=== PATIENT | female | born 1990 | race Caucasian/White ===

== ENCOUNTER → 2018-02-16 | Outpatient (CLI) | payer OTHER ==
--- NOTE | 2018-02-16 11:22 | US ---
EXAMINATION TYPE: US thyroid st tissue head/neck DATE OF EXAM: 02/16/2018 COMPARISON: NONE CLINICAL HISTORY: 27-year-old female R22.0 Swelling abnormality neck. No thyroid meds. Patient state s doctor felt thyroid was enlarged. Tired. Sluggish. Weight gain- 40 lbs in 1 year. TECHNIQUE: Multiple sonographic images of the thyroid gland are obtained. FINDINGS: GLAND SIZE: Right Lobe: 4.5 x 1.5 x 1.5 cm Overall Parenchyma: homogenous Left Lobe: 4.2 x 1.2 x 1.3 cm Overall Parenchyma: homogeneous Isthmus Thickness: 0.2 cm NODULES RIGHT: # of nodules measured on right: 2 1. 0.9 X 0.7 x 0.5 cm hypoechoic solid nodule at the lateral mid pole with well-defined margins. T his nodule is wider than tall and shows intranodular vascularity. Prior size: No previous 2. 0.5 X 0.5 x 0.4 cm hypoechoic solid nodule at the lower medial pole with well-defined margins. T his nodule is wider than tall and shows intranodular vascularity. Prior size: No prior LEFT: # of nodules measured on left: 0 ISTHMUS: # of nodules measured in the isthmus: 0 Bilateral neck scanned. Left prominent lymph node seen in lateral neck- 1.5 x 0.9 x 0.5 cm IMPRESSION: 1. Two solid nodules in the right lobe measuring 9 mm and 5 mm. Follow-up can be performed for these. 2. A prominent but nonenlarged lymph node incidentally seen along the lateral aspect of the left neck (9 mm short axis) and is nonspecific.
== END | disposition home or self-care (01) ==
LOC: RADUSWWP 10:21
PROVIDERS: ATTEND Internal Medicine
DX: E04.2 Nontoxic multinodular goiter (principal)
CPT/HCPCS: 76536

== ENCOUNTER 2018-06-22 03:51 | Emergency (ER) | payer OTHER ==
[2018-06-22 03:59] VITALS: BP 132/98; PULSE 81; RESP 18; TEMP 97.7
--- NOTE | 2018-06-22 04:34 | ED ---
ENT HPI - General Chief complaint: ENT Stated complaint: Difficulty Breathing Time Seen by Provider: 06/22/18 04:33 Source: patient Mode of arrival: ambulatory Limitations: physical limitation - History of Present Illness Initial comments: Patient is a 27-year-old female presents the emergency department for 2 days of sore throat. Patient reports that he just feels like her throat is swollen and on fire. It hurts to eat or drink. She reports associated subjective fevers. She denies any associated chills, nausea, vomiting, chest pain or shortness of breath. She reports even breathing hurts. Patient denies any sick contacts that she does have 3 children 10 years and younger home. - Related Data Previous Rx's Medication Instructions Recorded Amoxicillin 500 mg PO BID 10 Days #20 capsule 06/22/18 Allergies Allergy/AdvReac Type Severity Reaction Status Date / Time No Known Allergies Allergy Verified 06/22/18 03:59 Review of Systems ROS Statement: Those systems with pertinent positive or pertinent negative responses have been documented in the HPI. ROS Other: All systems not noted in ROS Statement are negative. Past Medical History Past Medical History: No Reported History History of Any Multi-Drug Resistant Organisms: None Reported Past Surgical History: No Surgical Hx Reported Additional Past Surgical History / Comment(s): tubal ligation Past Psychological History: No Psychological Hx Reported Smoking Status: Former smoker Past Alcohol Use History: None Reported Past Drug Use History: None Reported General Exam - General Exam Comments Initial Comments: Physical Exam GENERAL: Patient is well-developed and well-nourished. Patient is nontoxic and well-hydrated, appears uncomfortable HENT: Normocephalic, Atraumatic. TMs normal bilaterally Posterior oropharynx with erythema and exudate of the bilateral tonsils, there is no asymmetry, uvula is midline, there is no evidence of peritonsillar abscess Tender cervical lymphadenopathy EYES: PERRL, EOMI PULMONARY: Unlabored respirations. No audible rales rhonchi or wheezing was noted. CARDIOVASCULAR: There is a regular rate and rhythm without any murmurs gallops or rubs. ABDOMEN: Soft and nontender with normal bowel sounds. SKIN: Skin is clear with no lesions or rashes and otherwise unremarkable. : Deferred NEUROLOGIC: Patient is alert and oriented x3. Moving all extremities spontaneously MUSCULOSKELETAL: Normal extremities with adequate strength and full range of motion. No lower extremity swelling or edema. No calf tenderness. PSYCHIATRIC: Normal psychiatric evaluation. Limitations: physical limitation Course Vital Signs 06/22/18 03:55 Temperature 97.7 F Pulse Rate 81 Respiratory 18 Rate Blood Pressure 132/98 O2 Sat by Pulse 97 Oximetry Medical Decision Making - Medical Decision Making Patient was seen and evaluated history was obtained from the patient Discussed in history and physical exam patient likely has strep will treat with steroids for inflammation and antibiotics for strep Advised patient to have her children evaluated if they develop symptoms All questions pertaining to care were answered, patient discharged home in stable condition. Disposition Clinical Impression: Streptococcal sore throat Disposition: HOME SELF-CARE Condition: Stable Instructions (If sedation given, give patient instructions): Strep Throat (DC) Prescriptions: Amoxicillin 500 mg PO BID 10 Days #20 capsule Is patient prescribed a controlled substance at d/c from ED?: No Referrals: Stephanie Barry MD [Primary Care Provider] - 1-2 days
[2018-06-22] MEDS ORDERED: AMOXICILLIN 500 MG CAP PO STA (04:38)
[2018-06-22] MEDS ORDERED: DEXAMETHASONE SOD PHOSPHATE 10 MG/ML 1 ML VIAL IM STA (04:38)
== END 2018-06-22 04:47 | disposition home or self-care (01) ==
LOC: EC 03:51
DX: J02.0 Streptococcal pharyngitis (principal); Z87.891 Personal history of nicotine dependence
CPT/HCPCS: 96372; 99284

== ENCOUNTER 2018-07-05 22:30 | Emergency (ER) | payer OTHER ==
[2018-07-05 23:04] VITALS: BP 142/95; PULSE 98; RESP 20; TEMP 98.6
[2018-07-05 23:09] LABS: Appearance,Urine Turbid (Clear); Bilirubin,Urine Negative (Negative); Blood,Urine Moderate (Negative); Color,Urine Light Red; Glucose,Urine (UA) Negative (Negative); Ketones,Urine Negative (Negative); Leukocyte Esterase,Urine Large (Negative); Mucus,Urine Rare /hpf; Nitrite,Urine Negative (Negative); Protein,Urine 2+ (Negative); RBC,Urine >182 /hpf (0-5); Specific Gravity,Urine 1.025 (1.001-1.035); Squamous Epithelial Cell,Urine 4 /hpf (0-4); Urobilinogen,Urine <2.0 mg/dL (<2.0)
[2018-07-06] MEDS ORDERED: NALOXONE 0.4 MG/ML 1 ML VIAL IV PRN (00:41)
[2018-07-06] MEDS ORDERED: NITROFURANTOIN MONOHYD/M-CRYST 100 MG CAP PO STA (00:57)
--- NOTE | 2018-07-06 00:57 | ED ---
General Adult HPI <Lucila Amezcua - Last Filed: 07/06/18 03:26> - General Source: patient Mode of arrival: ambulatory Limitations: no limitations <Ana Johnson - Last Filed: 07/06/18 03:33> - General Chief complaint: Abdominal Pain Stated complaint: Abd pain, blood in urine Time Seen by Provider: 07/06/18 00:57 - History of Present Illness Initial comments: 27-year-old female presented for dysuria frequency and hematuria. Patient states that yesterday she experienced some mild left lower back pain. She states today she has had dysuria urgency frequency that began later this evening. Patient states he came on suddenly comes and goes. She states that yesterday she took Tylenol this alleviate the back pain she has not had any sense. Patient denies any fever or chills or night sweats. Patient states she has had a tubal ligation is not . Patient denies nausea vomiting diarr hea. Patient denies any pelvic pain or cramping. Remaining review of systems negative upon arrival patient appears well no signs of acute distress. Patient states that she recently had STI testing, at the beginning of June, pt states they returned negative and she has zero concern for STI. (Lucila Amezcua) - Related Data Previous Rx's Medication Instructions Recorded Sulfamethox-Tmp 800-160Mg [Bactrim 1 tab PO Q12HR 28 Days #14 tab 07/06/18 DS 800-160 mg] Allergies Allergy/AdvReac Type Severity Reaction Status Date / Time No Known Allergies Allergy Verified 06/22/18 03:59 Review of Systems ROS Other: All systems not noted in ROS Statement are negative. <Lucila Amezcua - Last Filed: 07/06/18 03:26> ROS Other: All systems not noted in ROS Statement are negative. <Ana Johnson - Last Filed: 07/06/18 03:33> ROS Statement: Those systems with pertinent positive or pertinent negative responses have been documented in the HPI. Past Medical History Past Medical History: No Reported History History of Any Multi-Drug Resistant Organisms: None Reported Past Surgical History: No Surgical Hx Reported Additional Past Surgical History / Comment(s): tubal ligation Past Psychological History: No Psychological Hx Reported Smoking Status: Former smoker Past Alcohol Use History: Rare Past Drug Use History: None Reported <Ana Johnson - Last Filed: 07/06/18 03:33> General Exam <Lucila Amezcua - Last Filed: 07/06/18 03:26> Limitations: no limitations <Ana Johnson - Last Filed: 07/06/18 03:33> - General Exam Comments Initial Comments: General: The patient is awake and alert, in no distress, and does not appear acutely ill. Eye: Pupils are equal, round and reactive to light, extra-ocular movements are intact. No nystagmus. There is normal conjunctiva bilaterally. No signs of icterus. Ears, nose, mouth and throat: There are moist mucous membranes and no oral lesions. Neck: The neck is supple, there is no tenderness or JVD. Cardiovascular: There is a regular rate and rhythm. No murmur, rub or gallop is appreciated. Respiratory: Lungs are clear to auscultation, respirations are non-labored, breath sounds are equal. No wheezes, stridor, rales, or rhonchi. Gastrointestinal: Soft, non-distended, non-tender abdomen without masses or organomegaly noted. There is no rebound or guarding present. No CVA tenderness. Bowel sounds are unremarkable. Musculoskeletal: Normal ROM, no tenderness. Strength 5/5. Sensation intact. Pulses equal bilaterally 2+. Neurological: A&O x 3. CN II-XII intact, There are no obvious motor or sensory deficits. Coordination appears grossly intact. Speech is normal. Skin: Skin is warm and dry and no rashes or lesions are noted. Psychiatric: Cooperative, appropriate mood & affect, normal judgment. (Lucila Amezcua) Course Vital Signs 07/05/18 23:02 Temperature 98.6 F Pulse Rate 98 Respiratory 20 Rate Blood Pressure 142/95 O2 Sat by Pulse 99 Oximetry Medical Decision Making - Lab Data Result diagrams: 07/06/18 01:20 07/06/18 01:20 <Lucila Amezcua - Last Filed: 07/06/18 03:26> - Lab Data Result diagrams: 07/06/18 01:20 07/06/18 01:20 <Ana Johnson - Last Filed: 07/06/18 03:33> - Medical Decision Making 27-year-old female presenting for dysuria urgency frequency and history of back pain yesterday. Pt denies fever, no CVA tenderness. Urinalysis revealed findings consistent with possible stone versus urinary tract infection, hemorrhagic. Patient is given a dose of macrobid in the emergency department. CT revealed no signs of nephrolithiasis. However there was incidental finding of epiploic appendagitis, however patient is nontender to palpation of the left lower heri drant on examination. I discussed this finding with patient. At this time I feel patient is stable for discharge with outpatient follow-up, treatment with bactrim x 14 days. Concern for developing pyelonephritis from UTI. Return parameters were discussed with patient who verbalizes understanding. Patient was discharged appearing well, after discussing case with attending provider Dr. Johnson. (Lucila Amezcua) I was available for consultation in the emergency department. The history and physical exam were done by the midlevel provider. I was consulted for this patient's care. I reviewed the case with the midlevel provider and based on their presentation of the patient, I agree with the assessment, medical decision making and plan of care as documented. Chart was dictated using Whatever dictation software. Attempts were made to correct any dictation errors however some typographical errors may persist. (Ana Johnson) - Lab Data Lab Results 07/05/18 07/05/18 07/06/18 Range/Units 22:45 22:45 01:20 WBC 14.1 H (3.8-10.6) k/uL RBC 4.63 (3.80-5.40) m/uL Hgb 13.2 (11.4-16.0) gm/dL Hct 38.9 (34.0-46.0) % MCV 83.9 (80.0-100.0) fL MCH 28.5 (25.0-35.0) pg MCHC 33.9 (31.0-37.0) g/dL RDW 13.7 (11.5-15.5) % Plt Count 191 (150-450) k/uL Neutrophils % 79 % Lymphocytes % 16 % Monocytes % 4 % Eosinophils % 1 % Basophils % 0 % Neutrophils # 11.1 H (1.3-7.7) k/uL Lymphocytes # 2.2 (1.0-4.8) k/uL Monocytes # 0.5 (0-1.0) k/uL Eosinophils # 0.1 (0-0.7) k/uL Basophils # 0.0 (0-0.2) k/uL Sodium (137-145) mmol/L Potassium (3.5-5.1) mmol/L Chloride (98-107) mmol/L Carbon Dioxide (22-30) mmol/L Anion Gap mmol/L BUN (7-17) mg/dL Creatinine (0.52-1.04) mg/dL Est GFR (CKD-EPI)AfAm (>60 ml/min/1.73 sqM) Est GFR (CKD-EPI)NonAf (>60 ml/min/1.73 sqM) Glucose (74-99) mg/dL Calcium (8.4-10.2) mg/dL Total Bilirubin (0.2-1.3) mg/dL AST (14-36) U/L ALT (9-52) U/L Alkaline Phosphatase (38-126) U/L Total Protein (6.3-8.2) g/dL Albumin (3.5-5.0) g/dL Urine Color Light Red Urine Appearance Turbid H (Clear) Urine pH 6.0 (5.0-8.0) Ur Specific [place] 1.025 (1.001-1.035) Urine Protein 2+ H (Negative) Urine Glucose (UA) Negative (Negative) Urine Ketones Negative (Negative) Urine Blood Moderate H (Negative) Urine Nitrite Negative (Negative) Urine Bilirubin Negative (Negative) Urine Urobilinogen <2.0 (<2.0) mg/dL Ur Leukocyte Esterase Large H (Negative) Urine RBC >182 H (0-5) /hpf Urine WBC >182 H (0-5) /hpf Urine WBC Clumps Occasional H (None) /hpf Ur Squamous Epith Cells 4 (0-4) /hpf Urine Mucus Rare H (None) /hpf Urine HCG, Qual Not Detected (Not Detectd) 07/06/18 Range/Units 01:20 WBC (3.8-10.6) k/uL RBC (3.80-5.40) m/uL Hgb (11.4-16.0) gm/dL Hct (34.0-46.0) % MCV (80.0-100.0) fL MCH (25.0-35.0) pg MCHC (31.0-37.0) g/dL RDW (11.5-15.5) % Plt Count (150-450) k/uL Neutrophils % % Lymphocytes % % Monocytes % % Eosinophils % % Basophils % % Neutrophils # (1.3-7.7) k/uL Lymphocytes # (1.0-4.8) k/uL Monocytes # (0-1.0) k/uL Eosinophils # (0-0.7) k/uL Basophils # (0-0.2) k/uL Sodium 140 (137-145) mmol/L Potassium 3.8 (3.5-5.1) mmol/L Chloride 106 (98-107) mmol/L Carbon Dioxide 27 (22-30) mmol/L Anion Gap 7 mmol/L BUN 14 (7-17) mg/dL Creatinine 0.75 (0.52-1.04) mg/dL Est GFR (CKD-EPI)AfAm >90 (>60 ml/min/1.73 sqM) Est GFR (CKD-EPI)NonAf >90 (>60 ml/min/1.73 sqM) Glucose 91 (74-99) mg/dL Calcium 9.6 (8.4-10.2) mg/dL Total Bilirubin 0.4 (0.2-1.3) mg/dL AST 17 (14-36) U/L ALT 21 (9-52) U/L Alkaline Phosphatase 62 (38-126) U/L Total Protein 7.3 (6.3-8.2) g/dL Albumin 4.3 (3.5-5.0) g/dL Urine Color Urine Appearance (Clear) Urine pH (5.0-8.0) Ur Specific [place] (1.001-1.035) Urine Protein (Negative) Urine Glucose (UA) (Negative) Urine Ketones (Negative) Urine Blood (Negative) Urine Nitrite (Negative) Urine Bilirubin (Negative) Urine Urobilinogen (<2.0) mg/dL Ur Leukocyte Esterase (Negative) Urine RBC (0-5) /hpf Urine WBC (0-5) /hpf Urine WBC Clumps (None) /hpf Ur Squamous Epith Cells (0-4) /hpf Urine Mucus (None) /hpf Urine HCG, Qual (Not Detectd) Disposition Is patient prescribed a controlled substance at d/c from ED?: No Time of Disposition: 02:39 <Lucila Amezcua L - Last Filed: 07/06/18 03:26> <Ana Johnson - Last Filed: 07/06/18 03:33> Clinical Impression: UTI (urinary tract infection), Epiploic appendagitis Disposition: HOME SELF-CARE Condition: Good Instructions (If sedation given, give patient instructions): Urinary Tract Infection in Women (ED) Additional Instructions: Please use medication as discussed. Please follow-up with family doctor in the next 2 days.. Please return to emergency room if the symptoms increase or worsen or for any other concerns. Prescriptions: Sulfamethox-Tmp 800-160Mg [Bactrim DS 800-160 mg] 1 tab PO Q12HR 28 Days #14 tab Referrals: Stephanie Barry MD [Primary Care Provider] - 1-2 days
[2018-07-06] MEDS ORDERED: KETOROLAC 60 MG/2 ML VIAL IM STA (00:59)
--- NOTE | 2018-07-06 01:32 | XR ---
EXAM: XR Kub CLINICAL HISTORY: ITS.REASON XR Reason: calcifications TECHNIQUE: X-ray kub. COMPARISON: 04/27/10 FINDINGS/IMPRESSION: 2 upright views of the abdomen/pelvis. Bowel gas pattern nonobstructive. No subdiaphragmatic free air. Tubal ligation clips. Possible increased fecal burden. Correlate for constipation. No abnormal calcifications can be differentiated from possible vascular calcifications/intraluminal bowel contents. If there is concern for cholelithiasis or urolithiasis, ultrasound and/or CT could be obtained, as clinically indicated.
[2018-07-06 01:40] LABS: ALT 21 U/L (9-52); AST 17 U/L (14-36); Albumin 4.3 g/dL (3.5-5.0); Alkaline Phosphatase 62 U/L (38-126); Anion Gap 7 mmol/L; Blood Urea Nitrogen 14 mg/dL (7-17); Calcium 9.6 mg/dL (8.4-10.2); Carbon Dioxide 27 mmol/L (22-30); Chloride 106 mmol/L (98-107); Glucose 91 mg/dL (74-99); Potassium 3.8 mmol/L (3.5-5.1); Sodium 140 mmol/L (137-145); Total Bilirubin 0.4 mg/dL (0.2-1.3); Total Protein 7.3 g/dL (6.3-8.2)
[2018-07-06 01:46] LABS: Basophils % (A) 0 %; Eosinophils # (A) 0.1 k/uL (0-0.7); Eosinophils % (A) 1 %; HCT 38.9 % (34.0-46.0); HGB 13.2 gm/dL (11.4-16.0); Lymphocytes # (A) 2.2 k/uL (1.0-4.8); Lymphocytes % (A) 16 %; MCH 28.5 pg (25.0-35.0); MCHC 33.9 g/dL (31.0-37.0); MCV 83.9 fL (80.0-100.0); Mean Platelet Volume 7.7; Monocytes # (A) 0.5 k/uL (0-1.0); Monocytes % (A) 4 %; Neutrophils # (A) 11.1 k/uL (1.3-7.7); Neutrophils % (A) 79 %; Platelet Count 191 k/uL (150-450); RBC 4.63 m/uL (3.80-5.40); RDW 13.7 % (11.5-15.5); WBC 14.1 k/uL (3.8-10.6)
--- NOTE | 2018-07-06 02:36 | CT ---
ADDENDUM - Added by Alonso Murillo M.D. on 07/06/2018 2:38 AM (-07:00) Axial computed tomography images of the abdomen + pelvis without intravenous contrast. Please disregard CTDI in technique portion of report which was incorrectly entered. DLP is 525.5 mGy-cm. EXAM: CT Abdomen + Pelvis Without Intravenous Contrast CLINICAL HISTORY: ITS.REASON CT Reason: stone? TECHNIQUE: Axial computed tomography images of the abdomen + pelvis without intravenous contrast. CTDI is 5 mGy and DLP is 525.5 mGy-cm. This CT exam was performed using one or more of the following dose reduction techniques: automated exposure control, adjustment of the mA and/or kV according to patient size, and/or use of iterative reconstruction technique. COMPARISON: Plain film same date. CT examination from April 23, 2010 FINDINGS: Focal fat stranding in the left lower quadrant compatible with epiploic appendagitis. Difficult to exclude some punctate nonobstructive calcifications/nephrocalcinosis, example lower pole left kidney image 52 coronal though this could be artifactual. No discrete stone of measurable size is seen. No ureteral calculus or hydronephrosis. Subcentimeter hyperdense focus upper pole left kidney may represent hyperdense cyst. Present on prior, slightly increased in size. Measures about 7-8 mm on current exam. Area of cortical scarring lower pole left kidney. No appendicitis or other acute process. Spleen mildly prominent size measuring approximately 13 cm on axials. Gallbladder is partially contracted limiting evaluation but no calcified gallstones or CT evidence for cholecystitis is appreciated. Tubal ligation clips. Left tubal ligation clip displaced into the anterior pelvis. IMPRESSION: Focal fat stranding in the left lower quadrant compatible with epiploic appendagitis. No discrete urinary tract calculi or hydronephrosis. Artifact versus nephrocalcinosis. Nonemergent/incidental findings, as above.
== END 2018-07-06 03:21 | disposition home or self-care (01) ==
LOC: EC 22:30
DX: N39.0 Urinary tract infection, site not specified (principal); K63.89 Other specified diseases of intestine; Z87.891 Personal history of nicotine dependence; Z98.51 Tubal ligation status
CPT/HCPCS: 36415; 74018; 74176; 80053; 81001; 81025; 85025; 87077; 87086; 87186; 96372; 99284

== ENCOUNTER → 2018-07-25 | Outpatient (CLI) | payer OTHER ==
[2018-07-25 13:52] LABS: T4, Free (Free Thyroxine) 1.03 ng/dL (0.78-2.19)
--- NOTE | 2018-07-25 14:46 | US ---
EXAMINATION TYPE: US thyroid st tissue head/neck DATE OF EXAM: 07/25/2018 COMPARISON: US CLINICAL HISTORY: E04.2 Multinodular Goiter. GLAND SIZE: Right Lobe: 4.4 x 1.6 x 1.0 cm Overall Parenchyma: homogenous Left Lobe: 4.1 x 1.7 x 0.9 cm Overall Parenchyma: homogeneous Isthmus Thickness: 0.1 cm NODULES RIGHT: # of nodules measured on right: 2 1. 0.8 X 0.4 x 0.8 cm hypoechoic solid nodule at the lateral mid pole with well-defined margins. Thi s nodule is wider than tall and shows intranodular vascularity. Prior size: 0.9 x 0.4 x 0.8 cm 2. 0.5 X 0.4 x 0.3 cm hypoechoic solid nodule at the lower medial pole with well-defined margins. Th is nodule is wider than tall and shows intranodular vascularity. Prior size: 0.5 x 0.5 x 0.4 cm LEFT: # of nodules measured on left: 0 ISTHMUS: # of nodules measured in the isthmus: 0 Bilateral neck scanned, no evidence of lymphadenopathy. IMPRESSION: Similar size of the subcentimeter right thyroid nodules. Continued surveillance is recommended.
== END | disposition home or self-care (01) ==
LOC: RADUSWWP 12:31
PROVIDERS: ATTEND Internal Medicine
DX: E04.1 Nontoxic single thyroid nodule (principal); E04.2 Nontoxic multinodular goiter; E55.9 Vitamin D deficiency, unspecified
CPT/HCPCS: 76536; 82306; 84439; 84443

== ENCOUNTER 2019-03-15 19:45 | Emergency (ER) | payer OTHER ==
[2019-03-15 20:16] VITALS: RESP 18
[2019-03-15 20:45] LABS: Appearance,Urine Cloudy (Clear); Bacteria,Urine Few /hpf; Bilirubin,Urine Negative (Negative); Blood,Urine Large (Negative); Color,Urine Yellow; Glucose,Urine (UA) Negative (Negative); Ketones,Urine Negative (Negative); Leukocyte Esterase,Urine Large (Negative); Mucus,Urine Occasional /hpf; Nitrite,Urine Negative (Negative); PH, Urine 5.5 (5.0-8.0); Protein,Urine 1+ (Negative); RBC,Urine >182 /hpf (0-5); Specific Gravity,Urine 1.028 (1.001-1.035); Squamous Epithelial Cell,Urine 5 /hpf (0-4); WBC,Urine >182 /hpf (0-5)
[2019-03-15] MEDS ORDERED: cefTRIAXone 1,000 MG VIAL (IM USE) IM STA (20:59)
--- NOTE | 2019-03-15 21:10 | ED ---
General Adult HPI - General Chief complaint: Abdominal Pain Stated complaint: Pelvic Pain Time Seen by Provider: 03/15/19 20:44 Source: patient, RN notes reviewed, old records reviewed Mode of arrival: ambulatory Limitations: no limitations - History of Present Illness Initial comments: 28-year-old female patient past history for tubal ligation presents to ED for chief complaint of burning with urination and suprapubic discomfort last 2 days. Patient also noticed some blood in her urine. Patient believes she has urinary tract infection. Denies any concern for STD. Denies any other complaints. Systemic: Pt denies fatigue, fever/chills, rash. Pt denies weakness, night sweats, weight loss. Neuro: Pt denies headache, visual disturbances, syncope or pre-syncope. HEENT: Pt denies ocular discharge or irritation, otalgia, rhinorrhea, pharyngitis or notable lymphadenopathy. Cardiopulmonary: Pt denies chest pain, SOB, heart palpitations, dyspnea on exertion. Abdominal/GI: Pt denies n/v/d. : Denies new onset urinary or bowel incontinence. MSK: Pt denies myalgia, loss of strength or function in extremities. Neuro: Pt denies new onset weakness, paresthesias. - Related Data Previous Rx's Medication Instructions Recorded Sulfamethox-Tmp 800-160Mg [Bactrim 1 tab PO Q12HR 28 Days #14 tab 07/06/18 DS 800-160 mg] Cephalexin [Keflex] 500 mg PO Q12HR 7 Days #14 cap 03/15/19 Allergies Allergy/AdvReac Type Severity Reaction Status Date / Time No Known Allergies Allergy Verified 03/15/19 20:16 Review of Systems ROS Statement: Those systems with pertinent positive or pertinent negative responses have been documented in the HPI. ROS Other: All systems not noted in ROS Statement are negative. Past Medical History Past Medical History: No Reported History History of Any Multi-Drug Resistant Organisms: None Reported Past Surgical History: No Surgical Hx Reported Additional Past Surgical History / Comment(s): tubal ligation Past Psychological History: No Psychological Hx Reported Smoking Status: Current some day smoker Past Alcohol Use History: Rare Past Drug Use History: None Reported General Exam - General Exam Comments Initial Comments: Constitutional: NAD, AOX3, Pt has pleasant affect. HEENT: NC/AT, trachea midline, neck supple, no lymphadenopathy. Posterior p harynx non erythematous, without exudates. External ears appear normal, without discharge. Mucous membranes moist. Eyes PERRLA, EOM intact. There is no scleral icterus. No pallor noted. Cardiopulmonary: RRR, no murmurs, rubs or gallops, no JVD noted. Lungs CTAB in anterior and posterior allred. No peripheral edema. Abdominal exam: Abdomen soft and non-distended. Abdomen very mildly tender in suprapubic region.. Bowel sounds active in LLQ. No hepatosplenomegaly. No ecchymosis. No CVA tenderness. Neuro: CN II-XII grossly intact. No nuchal rigidity. No raccon eyes, no zaldivar sign, no hemotympanum. No cervical spinal tenderness. MSK: No posterior calf tenderness bilaterally, homans sign negative bilaterally. Posterior tibialis and radial pulse +2 bilaterally. Sensation intact in upper and lower extremities. Full active ROM in upper and lower extremities, 5/5 stregnth. Limitations: no limitations Course Vital Signs 03/15/19 20:13 Temperature 98 F Pulse Rate 90 Respiratory 18 Rate Blood Pressure 127/80 O2 Sat by Pulse 98 Oximetry Medical Decision Making - Medical Decision Making 28-year-old female patient past history for tubal ligation presents to ED for chief complaint of burning with urination and suprapubic discomfort last 2 days. Patient also noticed some blood in her urine. Patient believes she has urinary tract infection. Denies any concern for STD. Denies any other complaints. Patient also in stable, afebrile. Patient denies any recent have immunocompromise state, asplenia. Physical exam is mild suprapubic discomfort. UA consistent with urinary tract infection. Patient Unasyn Rocephin emergency department. We'll be discharged with outpatient Keflex. Patient follow up with primary care provider tomorrow and will return to ER if condition worsens. Case discussed with Dr. Parada. - Lab Data Lab Results 03/15/19 03/15/19 Range/Units 20:15 20:15 Urine Color Yellow Urine Appearance Cloudy H (Clear) Urine pH 5.5 (5.0-8.0) Ur Specific [place] 1.028 (1.001-1.035) Urine Protein 1+ H (Negative) Urine Glucose (UA) Negative (Negative) Urine Ketones Negative (Negative) Urine Blood Large H (Negative) Urine Nitrite Negative (Negative) Urine Bilirubin Negative (Negative) Urine Urobilinogen 2.0 (<2.0) mg/dL Ur Leukocyte Esterase Large H (Negative) Urine RBC >182 H (0-5) /hpf Urine WBC >182 H (0-5) /hpf Urine WBC Clumps Few H (None) /hpf Ur Squamous Epith Cells 5 H (0-4) /hpf Urine Bacteria Few H (None) /hpf Urine Mucus Occasional H (None) /hpf Urine HCG, Qual Not Detected (Not Detectd) Disposition Clinical Impression: UTI (urinary tract infection) Disposition: HOME SELF-CARE Condition: Stable Instructions (If sedation given, give patient instructions): Urinary Tract Infection in Women (ED) Additional Instructions: Take antibiotics as directed. Follow-up with primary care provider tomorrow. Return to ER if condition worsens in any way. Prescriptions: Cephalexin [Keflex] 500 mg PO Q12HR 7 Days #14 cap Is patient prescribed a controlled substance at d/c from ED?: No Referrals: Stephanie Barry MD [Primary Care Provider] - 1-2 days
[2019-03-15 21:24] VITALS: BP 121/84; PULSE 70; TEMP 98
[2019-03-17 07:51] LABS: C. trachomatis,PCR Negative (Neg,Equiv); Chlamydia trachomatis Source Urine
[2019-03-17 07:56] LABS: N. gonorrhoeae,PCR Negative (Neg,Equiv); Neisseria Source Urine
== END 2019-03-15 21:20 | disposition home or self-care (01) ==
LOC: EC 19:45
DX: N39.0 Urinary tract infection, site not specified (principal); F17.200 Nicotine dependence, unspecified, uncomplicated
CPT/HCPCS: 81001; 81025; 87491; 87591; 87086; 99284; 96372; J0696; 87077; 87186

== ENCOUNTER → 2020-02-19 | Outpatient (CLI) | payer OTHER ==
[2020-02-19 17:02] LABS: T4, Free (Free Thyroxine) 0.95 ng/dL (0.78-2.19)
--- NOTE | 2020-02-20 10:46 | US ---
EXAMINATION TYPE: US thyroid st tissue head/neck DATE OF EXAM: 02/19/2020 COMPARISON: US's most recent dated 07/25/2018 CLINICAL HISTORY: E04.2 NONTOXIC MULTINODULAR GOITER. GLAND SIZE: Right Lobe: 4.4 x 1.5 x 1.6 cm Overall Parenchyma: homogenous Left Lobe: 4.3 x 1.4 x 1.4 cm Overall Parenchyma: homogeneous Isthmus Thickness: 0.2 cm NODULES RIGHT: # of nodules measured on right: 2 1. 1.0 X 0.5 x 0.8 cm solid or almost completely solid, hyperechoic nodule, which is wider than nicola l, with smooth margins, without echogenic foci. Prior size: 0.8 x 0.4 x 0.8 cm 2. 0.5 X 0.4 x 0.4 cm solid or almost completely solid, hypoechoic nodule, which is wider than tall , with smooth margins, without echogenic foci. Prior size: 0.5 x 0.4 x 0.3 cm LEFT: # of nodules measured on left: 0 ISTHMUS: # of nodules measured in the isthmus: 0 Bilateral neck scanned, no evidence of lymphadenopathy. IMPRESSION: Moderately suspicious minimally enlarged nodule right lobe thyroid. Continued follow-up with an addit ional exam in one year is recommended. 2017 ACR TI-RADS LEVEL: 4 *Highest TI-RADS level nodule reported
== END | disposition home or self-care (01) ==
LOC: RADUSWWP 15:32
PROVIDERS: ATTEND Internal Medicine
DX: E04.2 Nontoxic multinodular goiter (principal); E55.9 Vitamin D deficiency, unspecified
CPT/HCPCS: 76536; 82306; 84439; 84443

== ENCOUNTER 2020-02-21 12:29 | Observation (INO) | payer OTHER ==
[2020-02-21 13:42] LABS: Basophils % (A) 0 %; Eosinophils # (A) 0.1 k/uL (0-0.7); Eosinophils % (A) 1 %; HCT 42.9 % (34.0-46.0); HGB 14.7 gm/dL (11.4-16.0); Lymphocytes # (A) 1.4 k/uL (1.0-4.8); Lymphocytes % (A) 15 %; MCH 29.2 pg (25.0-35.0); MCHC 34.3 g/dL (31.0-37.0); MCV 85.2 fL (80.0-100.0); Mean Platelet Volume 7.6; Monocytes # (A) 0.4 k/uL (0-1.0); Monocytes % (A) 4 %; Neutrophils # (A) 7.2 k/uL (1.3-7.7); Neutrophils % (A) 78 %; Platelet Count 195 k/uL (150-450); RBC 5.03 m/uL (3.80-5.40); RDW 12.4 % (11.5-15.5); WBC 9.2 k/uL (3.8-10.6)
[2020-02-21 13:49] LABS: Appearance,Urine Clear (Clear); Bacteria,Urine Rare /hpf; Bilirubin,Urine Negative (Negative); Blood,Urine Small (Negative); Color,Urine Yellow; Glucose,Urine (UA) Negative (Negative); Ketones,Urine Negative (Negative); Leukocyte Esterase,Urine Small (Negative); Mucus,Urine Few /hpf; Nitrite,Urine Negative (Negative); Protein,Urine Trace (Negative); RBC,Urine 6 /hpf (0-5); Squamous Epithelial Cell,Urine 7 /hpf (0-4); Urobilinogen,Urine <2.0 mg/dL (<2.0); WBC,Urine 2 /hpf (0-5)
[2020-02-21 14:00] LABS: ALT 15 U/L (4-34); AST 18 U/L (14-36); African American GFR (CKD) >90 (>60 ml/min/1.73 sqM); Albumin 4.1 g/dL (3.5-5.0); Alkaline Phosphatase 48 U/L (38-126); Amylase 59 U/L (30-110); Anion Gap 4 mmol/L; Blood Urea Nitrogen 16 mg/dL (7-17); Calcium 9.3 mg/dL (8.4-10.2); Carbon Dioxide 29 mmol/L (22-30); Chloride 106 mmol/L (98-107); Glucose 97 mg/dL (74-99); Lipase 184 U/L (23-300); Non-African American GFR(CKD) >90 (>60 ml/min/1.73 sqM); Potassium 4.2 mmol/L (3.5-5.1); Sodium 139 mmol/L (137-145); Total Bilirubin 0.4 mg/dL (0.2-1.3)
--- NOTE | 2020-02-21 14:02 | US ---
EXAMINATION TYPE: US abdomen limited DATE OF EXAM: 02/21/2020 COMPARISON: NONE CLINICAL HISTORY: ruq/epigastric pain. abd pain with nausea EXAM MEASUREMENTS: Liver Length: 15.7 cm Gallbladder Wall: 0.2 cm CBD: 0.5 cm Right Kidney: 9.1 x 4.2 x 3.9 cm Pancreas: Obscured by bowel gas Liver: wnl Gallbladder: multiple, non-shadowing areas, some of which were mobile seen Evidence for sonographic Estrada's sign: YES CBD: wnl Right Kidney: wnl IMPRESSION: 1. Multiple nonshadowing echogenic structures within the gallbladder likely related to tiny gallstone s versus gallbladder polyps. No gallbladder wall thickening.
[2020-02-21] MEDS ORDERED: ONDANSETRON 4 MG/2 ML VIAL IVP STA (14:03)
[2020-02-21] MEDS ORDERED: PANTOPRAZOLE 40 MG/10 ML VIAL IVP STA (14:03)
[2020-02-21] MEDS ORDERED: ACET/COD 300 MG/30 MG STARTER PACK 6 TAB BTL PO STA (14:03)
[2020-02-21] MEDS ORDERED: SODIUM CHLORIDE 0.9% 500 ML 500 ML IV ONE (14:03)
--- NOTE | 2020-02-21 15:21 | CT ---
EXAMINATION TYPE: CT abdomen pelvis w con DATE OF EXAM: 02/21/2020 COMPARISON: 07/06/2018 INDICATION: Abdominal pain DLP: 718.2 mGycm, Automated exposure control for dose reduction was used. CONTRAST: 100 mL of Isovue 300. Study performed without Oral Contrast TECHNIQUE: Axial images were obtained from above the diaphragm to the pubic rami in the axial plane a t 5 mm thick sections. Reconstructed images are reviewed on the computer in the coronal plane. FINDINGS: Limited CT sections are obtained the lung bases. The lung bases are clear. CT ABDOMEN: Liver: Normal Spleen: Normal Pancreas: Normal Adrenal glands: The adrenal glands are normal. Gallbladder: Normal Kidneys: No masses are evident. No hydronephrosis is present. No cysts are present. Delayed images were obtained through the kidneys, which remain unremarkable. Aorta: Vascular calcification is within the aorta. Inferior vena cava: Normal. CT PELVIS: Loops of bowel within the abdomen and pelvis are normal. Scattered diverticuli without acute diverti culitis is present. Study is performed without oral contrast limiting bowel evaluation Appendix: Normal as visualized. Urinary bladder: Normal. Genitourinary structures: Uterus appears unremarkable. Follicles are present on the bilateral ovaries . Osseous structures: No suspicious lytic or sclerotic lesions. IMPRESSIONS: 1. Diverticulosis without acute diverticulitis.
[2020-02-21] MEDS ORDERED: HYDROmorphone 0.5 MG/0.5 ML SYRINGE IVP STA (15:30)
--- NOTE | 2020-02-21 15:38 | ED ---
Abdominal Pain HPI <Js Abreu - Last Filed: 02/21/20 17:24> - General Source: patient Mode of arrival: ambulatory Limitations: no limitations <Lucila Amezcua - Last Filed: 02/21/20 17:45> - General Chief Complaint: Abdominal Pain Stated Complaint: ABD pain Time Seen by Provider: 02/21/20 12:53 - History of Present Illness Initial Comments: 29yo female prsenting for cc of RUQ, epigastric pian with nausea x 3 days. pt states for the past 3 days she has had an aching and at times sharp upper abdomi nal pain. associated nausea, not vomitng, denies fevers, diarrhea. denies dark or bloody stools. dneies history of PUD> Denies alcohol or nsaid abuse. pt denies chest pain, shortness of breath. pt states she was concerned the pain was related to her gallbladder. at times the pain does radiate to the back. Remaining ROS (-). (Lucila Amezcua) - Related Data Home Medications Medication Instructions Recorded Confirmed No Known Home Medications 02/21/20 02/21/20 Allergies Allergy/AdvReac Type Severity Reaction Status Date / Time No Known Allergies Allergy Verified 02/21/20 15:06 Review of Systems ROS Other: All systems not noted in ROS Statement are negative. <Js Abreu - Last Filed: 02/21/20 17:24> ROS Other: All systems not noted in ROS Statement are negative. <Lucila Amezcua - Last Filed: 02/21/20 17:45> ROS Statement: Those systems with pertinent positive or pertinent negative responses have been documented in the HPI. Past Medical History Past Medical History: No Reported History History of Any Multi-Drug Resistant Organisms: None Reported Past Surgical History: Tubal Ligation Additional Past Surgical History / Comment(s): tubal ligation Past Psychological History: No Psychological Hx Reported Smoking Status: Never smoker Past Alcohol Use History: Rare Past Drug Use History: None Reported <Lucila Amezcua - Last Filed: 02/21/20 17:45> General Exam Limitations: no limitations <Lucila Amezcua - Last Filed: 02/21/20 17:45> - General Exam Comments Initial Comments: General: The patient is awake and alert, in no distress Eye: +3 mm pupils are equal, round and reactive to light, extra-ocular movements are intact. No nystagmus. There is normal conjunctiva bilaterally. No signs of icterus. Ears, nose, mouth and throat: There are moist mucous membranes and no oral lesions. Neck: The neck is supple, there is no tenderness or JVD. Cardiovascular: There is a regular rate and rhythm. No murmur, rub or gallop is appreciated. Respiratory: Lungs are clear to auscultation, respirations are non-labored, breath sounds are equal. No wheezes, stridor, rales, or rhonchi. Gastrointestinal: Soft, non-distended, + muprhys signs, ruq tenderness and e pigastric tenderness to palpation of the abdomen, abdomen without masses or organomegaly noted. There is no rebound or guarding present. Musculoskeletal: Normal ROM, no tenderness. Strength 5/5. Sensation intact. Radial pulses equal bilaterally 2+. Neurological: A&O x 3. CN II-XII intact grossly, There are no obvious motor or sensory deficits. Coordination appears grossly intact. Speech is normal. Skin: Skin is warm and dry and no rashes or lesions are noted. Psychiatric: Cooperative, appropriate mood & affect, normal judgment. (Lucila Amezcua) Course Vital Signs 02/21/20 12:38 Temperature 98.3 F Pulse Rate 81 Respiratory 20 Rate Blood Pressure 138/88 O2 Sat by Pulse 95 Oximetry Medical Decision Making - Lab Data Result diagrams: 02/21/20 13:20 02/21/20 13:19 <Js Abreu - Last Filed: 02/21/20 17:24> - Lab Data Result diagrams: 02/21/20 13:20 02/21/20 13:19 <Lucila Amezcua - Last Filed: 02/21/20 17:45> - Medical Decision Making Patient reevaluated and reexamined by myself, Dr. Abreu. I do agree with PA findings. This includes diagnostic interpretation and treatment plan. Patient does have continued symptoms with moderate tenderness more in the epigastric region. Patient not comfortable with discharge home. Case was discussed in detail with Dr. Flores, who will admit covering for hospital call. (Js Abreu) labs stable. pain not controlled in ER. numerous gall stones on US. CT No acute process. pt admitted to general surgery for consultation and further pain management. (Lucila Amezcua) - Lab Data Lab Results 02/21/20 02/21/20 02/21/20 Range/Units 13:18 13:18 13:19 WBC (3.8-10.6) k/uL RBC (3.80-5.40) m/uL Hgb (11.4-16.0) gm/dL Hct (34.0-46.0) % MCV (80.0-100.0) fL MCH (25.0-35.0) pg MCHC (31.0-37.0) g/dL RDW (11.5-15.5) % Plt Count (150-450) k/uL MPV Neutrophils % % Lymphocytes % % Monocytes % % Eosinophils % % Basophils % % Neutrophils # (1.3-7.7) k/uL Lymphocytes # (1.0-4.8) k/uL Monocytes # (0-1.0) k/uL Eosinophils # (0-0.7) k/uL Basophils # (0-0.2) k/uL Sodium 139 (137-145) mmol/L Potassium 4.2 (3.5-5.1) mmol/L Chloride 106 (98-107) mmol/L Carbon Dioxide 29 (22-30) mmol/L Anion Gap 4 mmol/L BUN 16 (7-17) mg/dL Creatinine 0.82 (0.52-1.04) mg/dL Est GFR (CKD-EPI)AfAm >90 (>60 ml/min/1.73 sqM) Est GFR (CKD-EPI)NonAf >90 (>60 ml/min/1.73 sqM) Glucose 97 (74-99) mg/dL Plasma Lactic Acid Rafa (0.7-2.0) mmol/L Calcium 9.3 (8.4-10.2) mg/dL Total Bilirubin 0.4 (0.2-1.3) mg/dL AST 18 (14-36) U/L ALT 15 (4-34) U/L Alkaline Phosphatase 48 (38-126) U/L Total Protein 7.0 (6.3-8.2) g/dL Albumin 4.1 (3.5-5.0) g/dL Amylase 59 (30-110) U/L Lipase 184 (23-300) U/L Urine Color Yellow Urine Appearance Clear (Clear) Urine pH 6.0 (5.0-8.0) Ur Specific Baker 1.030 (1.001-1.035) Urine Protein Trace H (Negative) Urine Glucose (UA) Negative (Negative) Urine Ketones Negative (Negative) Urine Blood Small H (Negative) Urine Nitrite Negative (Negative) Urine Bilirubin Negative (Negative) Urine Urobilinogen <2.0 (<2.0) mg/dL Ur Leukocyte Esterase Small H (Negative) Urine RBC 6 H (0-5) /hpf Urine WBC 2 (0-5) /hpf Ur Squamous Epith Cells 7 H (0-4) /hpf Urine Bacteria Rare H (None) /hpf Urine Mucus Few H (None) /hpf Urine HCG, Qual Not Detected (Not Detectd) 02/21/20 02/21/20 Range/Units 13:19 13:20 WBC 9.2 (3.8-10.6) k/uL RBC 5.03 (3.80-5.40) m/uL Hgb 14.7 (11.4-16.0) gm/dL Hct 42.9 (34.0-46.0) % MCV 85.2 (80.0-100.0) fL MCH 29.2 (25.0-35.0) pg MCHC 34.3 (31.0-37.0) g/dL RDW 12.4 (11.5-15.5) % Plt Count 195 (150-450) k/uL MPV 7.6 Neutrophils % 78 % Lymphocytes % 15 % Monocytes % 4 % Eosinophils % 1 % Basophils % 0 % Neutrophils # 7.2 (1.3-7.7) k/uL Lymphocytes # 1.4 (1.0-4.8) k/uL Monocytes # 0.4 (0-1.0) k/uL Eosinophils # 0.1 (0-0.7) k/uL Basophils # 0.0 (0-0.2) k/uL Sodium (137-145) mmol/L Potassium (3.5-5.1) mmol/L Chloride (98-107) mmol/L Carbon Dioxide (22-30) mmol/L Anion Gap mmol/L BUN (7-17) mg/dL Creatinine (0.52-1.04) mg/dL Est GFR (CKD-EPI)AfAm (>60 ml/min/1.73 sqM) Est GFR (CKD-EPI)NonAf (>60 ml/min/1.73 sqM) Glucose (74-99) mg/dL Plasma Lactic Acid Rafa 0.8 (0.7-2.0) mmol/L Calcium (8.4-10.2) mg/dL Total Bilirubin (0.2-1.3) mg/dL AST (14-36) U/L ALT (4-34) U/L Alkaline Phosphatase (38-126) U/L Total Protein (6.3-8.2) g/dL Albumin (3.5-5.0) g/dL Amylase (30-110) U/L Lipase (23-300) U/L Urine Color Urine Appearance (Clear) Urine pH (5.0-8.0) Ur Specific Baker (1.001-1.035) Urine Protein (Negative) Urine Glucose (UA) (Negative) Urine Ketones (Negative) Urine Blood (Negative) Urine Nitrite (Negative) Urine Bilirubin (Negative) Urine Urobilinogen (<2.0) mg/dL Ur Leukocyte Esterase (Negative) Urine RBC (0-5) /hpf Urine WBC (0-5) /hpf Ur Squamous Epith Cells (0-4) /hpf Urine Bacteria (None) /hpf Urine Mucus (None) /hpf Urine HCG, Qual (Not Detectd) Disposition <Js Abreu - Last Filed: 02/21/20 17:24> Is patient prescribed a controlled substance at d/c from ED?: No Time of Disposition: 17:39 Decision to Admit Reason: Admit from EC Decision Date: 02/21/20 Decision Time: 17:39 <Lucila Amezcua - Last Filed: 02/21/20 17:45> Clinical Impression: Abdominal pain, Gall stones Disposition: ADMITTED IP TO THIS HOSP Condition: Stable Referrals: Stephanie Barry MD [Primary Care Provider] - 1-2 days
[2020-02-21] MEDS ORDERED: NALOXONE 0.4 MG/ML 1 ML VIAL IV PRN (17:37)
[2020-02-21] MEDS: ONDANSETRON 4 MG/2 ML VIAL IVP PRN (21:33)
[2020-02-21] MEDS: LACTATED RINGERS 1,000 ML IV SCH (21:33)
[2020-02-21] MEDS: HYDROmorphone 0.5 MG/0.5 ML SYRINGE IVP PRN (23:57)
[2020-02-22] MEDS: LACTATED RINGERS 1,000 ML IV SCH ×3 (04:16→21:34)
[2020-02-22] MEDS: ONDANSETRON 4 MG/2 ML VIAL IVP PRN (04:16)
[2020-02-22] MEDS: HYDROmorphone 0.5 MG/0.5 ML SYRINGE IVP PRN ×2 (09:15→21:31)
--- NOTE | 2020-02-22 11:15 | P.GSHP ---
History of Present Illness H&P Date: 02/22/20 CHIEF COMPLAINT: Abdominal pain HISTORY OF PRESENT ILLNESS: This is a 29-year-old female with no snacking past medical history. She presents to the emergency room with complaints of right upper quadrant and epigastric abdominal pain with nausea and vomiting 3 days. She reports the pain is very sharp and it moves across her upper abdomen and into her back. Pain is worse after eating. She denies any fever or chills. She has been having sweats due to the severe pain. She reports no prior history of any gallbladder disease. She denies any change in her bowel habits. Abdominal ultrasound shows multiple non-shadowing echogenic structures within the gallbladder likely related to tiny gallstones versus gallbladder polyps. No gallbladder wall thickening. Computed tomography scan of the abdomen and pelvis showed diverticulosis without acute diverticulitis. Patient has been admitted to the hospital for her abdominal pain and gallstones. PAST MEDICAL HISTORY: See list. PAST SURGICAL HISTORY: See list. MEDICATIONS: See list. ALLERGIES: See list. SOCIAL HISTORY: No illicit drug use. REVIEW OF SYSTEMS: CONSTITUTIONAL: Denies fever or chills. HEENT: Denies blurred vision, vision changes, or eye pain. Denies hemoptysis CARDIOVASCULAR: Denies chest pain or pressure. RESPIRATORY: No shortness of breath. GASTROINTESTINAL: See HPI for pertinent findings HEMATOLOGIC: Denies bleeding disorders. GENITOURINARY: Denies any blood in urine or increased urinary frequency. SKIN: Denies pruitis. Denies rash. PHYSICAL EXAM: VITAL SIGNS: Reviewed GENERAL: Well-developed in no acute distress. HEENT: No sclera icterus. Extraocular movements grossly intact. Moist buccal m ucosa. Head is atraumatic, normocephalic. No nasal drainage. ABDOMEN: Soft. Nondistended tenderness with palpation of the right upper quadrant and epigastric area. NEUROLOGIC: Alert and oriented. Cranial nerves II through XII grossly intact. LABORATORY DATA: WBC 9.2 hemoglobin 14.7 lactic 0.8 LFTs are normal lipase 184 IMAGING: Abdominal ultrasound shows multiple non-shadowing echogenic structures within the gallbladder likely related to tiny gallstones versus gallbladder polyps. No gallbladder wall thickening. Computed tomography scan of the abdomen and pelvis showed diverticulosis without acute diverticulitis. ASSESSMENT: 1. Acute cholecystitis 2. Right upper quadrant and epigastric abdominal pain 3. Cholelithiasis PLAN: -Patient is scheduled for laparoscopic cholecystectomy today with Dr. Sosa -Keep patient nothing by mouth -Continue IV fluids and IV antibiotics -Continue IV Dilaudid as needed for pain control -Consult medicine for medical management -GI prophylaxis Protonix and DVT prophylaxis subcu heparin Physician Adult Literacy Instructor note has been reviewed by physician. Signing provider agrees with the documented findings, assessment, and plan of care. Past Medical History Past Medical History: No Reported History History of Any Multi-Drug Resistant Organisms: None Reported Past Surgical History: Tubal Ligation Additional Past Surgical History / Comment(s): tubal ligation Past Anesthesia/Blood Transfusion Reactions: No Reported Reaction Past Psychological History: No Psychological Hx Reported Smoking Status: Never smoker Past Alcohol Use History: Rare Past Drug Use History: None Reported - Past Family History Mother Family Medical History: No Reported History Medications and Allergies Home Medications Medication Instructions Recorded Confirmed Type No Known Home Medications 02/21/20 02/21/20 History Allergies Allergy/AdvReac Type Severity Reaction Status Date / Time No Known Allergies Allergy Verified 02/21/20 18:35 Surgical - Exam Vital Signs Temp Pulse Resp BP Pulse Ox 98.3 F 81 20 138/88 95 02/21/20 12:38 02/21/20 12:38 02/21/20 12:38 02/21/20 12:38 02/21/20 12:38 Results - Labs 02/21/20 13:20 02/21/20 13:19 Abnormal Lab Results - Last 24 Hours (Table) 02/21/20 Range/Units 13:18 Urine Protein Trace H (Negative) Urine Blood Small H (Negative) Ur Leukocyte Esterase Small H (Negative) Urine RBC 6 H (0-5) /hpf Ur Squamous Epith Cells 7 H (0-4) /hpf Urine Bacteria Rare H (None) /hpf Urine Mucus Few H (None) /hpf Diabetes panel 02/21/20 Range/Units 13:19 Sodium 139 (137-145) mmol/L Potassium 4.2 (3.5-5.1) mmol/L Chloride 106 (98-107) mmol/L Carbon Dioxide 29 (22-30) mmol/L BUN 16 (7-17) mg/dL Creatinine 0.82 (0.52-1.04) mg/dL Glucose 97 (74-99) mg/dL Calcium 9.3 (8.4-10.2) mg/dL AST 18 (14-36) U/L ALT 15 (4-34) U/L Alkaline Phosphatase 48 (38-126) U/L Total Protein 7.0 (6.3-8.2) g/dL Albumin 4.1 (3.5-5.0) g/dL Calcium panel 02/21/20 Range/Units 13:19 Calcium 9.3 (8.4-10.2) mg/dL Albumin 4.1 (3.5-5.0) g/dL Pituitary panel 02/21/20 Range/Units 13:19 Sodium 139 (137-145) mmol/L Potassium 4.2 (3.5-5.1) mmol/L Chloride 106 (98-107) mmol/L Carbon Dioxide 29 (22-30) mmol/L BUN 16 (7-17) mg/dL Creatinine 0.82 (0.52-1.04) mg/dL Glucose 97 (74-99) mg/dL Calcium 9.3 (8.4-10.2) mg/dL Adrenal panel 02/21/20 Range/Units 13:19 Sodium 139 (137-145) mmol/L Potassium 4.2 (3.5-5.1) mmol/L Chloride 106 (98-107) mmol/L Carbon Dioxide 29 (22-30) mmol/L BUN 16 (7-17) mg/dL Creatinine 0.82 (0.52-1.04) mg/dL Glucose 97 (74-99) mg/dL Calcium 9.3 (8.4-10.2) mg/dL Total Bilirubin 0.4 (0.2-1.3) mg/dL AST 18 (14-36) U/L ALT 15 (4-34) U/L Alkaline Phosphatase 48 (38-126) U/L Total Protein 7.0 (6.3-8.2) g/dL Albumin 4.1 (3.5-5.0) g/dL
[2020-02-22] MEDS: PIPERACILLIN-TAZOBACTAM 3.375 GM in SODIUM CHLORIDE 0.9% 100 ML IVPB SCH ×2 (12:42→21:02)
[2020-02-22] MEDS: PANTOPRAZOLE 40 MG/10 ML VIAL IVP SCH (12:42)
[2020-02-22 13:33] VITALS: BMI 28.9
[2020-02-22] MEDS ORDERED: IV FLUID CONTINUATION 1,000 ML IV ONE (16:19)
[2020-02-22] MEDS ORDERED: ONDANSETRON 4 MG/2 ML VIAL IVP ONE (16:24)
[2020-02-22] MEDS ORDERED: DEXAMETHASONE SOD PHOSPHATE 4 MG/ML 1 ML VIAL IVP ONE (16:24)
[2020-02-22] MEDS ORDERED: HEPARIN SODIUM,PORCINE 5,000 UNIT/ML 1 ML VIAL SQ ONE (17:00)
[2020-02-22] MEDS ORDERED: BUPIVACAINE (PF) 0.25% 30 ML VIAL SQ ONE ×2 (17:31→18:01)
[2020-02-22] MEDS ORDERED: GLYCOPYRROLATE 0.2 MG/ML 2 ML VIAL ONE (17:35)
[2020-02-22] MEDS ORDERED: fentaNYL (PF) 50 MCG/ML 2 ML AMP ONE (17:35)
[2020-02-22] MEDS ORDERED: PROPOFOL 10 MG/ML 20 ML VIAL IV ONE (17:35)
[2020-02-22] MEDS ORDERED: NEOSTIGMINE 1 MG/ML 10 ML VIAL ONE (17:35)
[2020-02-22] MEDS ORDERED: MIDAZOLAM 2 MG/2 ML VIAL ONE (17:35)
[2020-02-22] MEDS ORDERED: LIDOCAINE 1% INJ 10MG/ML (20 ML MDV) ONE (17:35)
[2020-02-22] MEDS ORDERED: ROCURONIUM 10 MG/ML (10 ML VIAL) IV ONE (17:35)
[2020-02-22] MEDS ORDERED: SUCCINYLCHOLINE CHLORIDE 100 MG/5 ML SYR IV ONE (17:35)
--- NOTE | 2020-02-22 18:17 | P.OP ---
Date of Procedure: 02/22/20 Preoperative Diagnosis: Acute cholecystitis Postoperative Diagnosis: Acute cholecystitis Procedure(s) Performed: Laparoscopic cholecystectomy Anesthesia: EFREN Surgeon: Sg Sosa Pathology: other (Gallbladder) Condition: stable Disposition: PACU Description of Procedure: The patient was placed on the operating table. The patient received a general endotracheal tube anesthesia. The patients abdomen was prepped and draped in the usual sterile fashion. Through an infraumbilical stab incision, the fascia of the anterior abdominal wall was grasped with a pair of Kochers and then the Veress needle was placed in the peritoneal cavity. Position of the Veress needle was confirmed with positive drop test. The abdomen was then insufflated. After adequate insufflation, the 10 mm trocar was placed in the peritoneal cavity. Following this the laparoscope was placed in the periton eal cavity. The patient was placed in the head-up, right side up position and then a 5 mm trocar was placed in the right lateral and right subcostal position under direct visualization. A 8 mm trocar was placed in the epigastric position. The gallbladder was grasped in the fundus and infundibulum. Traction on the gallbladder was placed in the lateral and the cephalad positions. The triangle of Calot was visualized.. The cystic duct was bluntly dissected until the union of the cystic duct and common bile duct was seen. A critical view of safety was achieved. The cystic duct was then divided and sealed with the Harmonic scissors. A PDS Endoloop was then placed throughout the cystic duct stump. The cystic artery divided and sealed with the Harmonic scissors. The gallbladder was then removed from the liver bed using Harmonic scissors. The gallbladder was then extracted through the epigastric port site. Operative field was checked for any bleeding spots and Harmonic scissors was used to coagulate the liver bed. The abdomen was irrigated. The trocars were removed. The skin was closed using interrupted 3-0 Vicryl suture. Dermabond dressing were applied. The patient tolerated the procedure well.
[2020-02-22] MEDS ORDERED: HYDROmorphone 0.5 MG/0.5 ML SYRINGE IVP ONE (18:50)
[2020-02-22] MEDS: HEPARIN SODIUM,PORCINE 5,000 UNIT/ML 1 ML VIAL SQ SCH (21:39)
[2020-02-23] MEDS: HYDROmorphone 0.5 MG/0.5 ML SYRINGE IVP PRN ×3 (01:22→08:08)
[2020-02-23] MEDS: PIPERACILLIN-TAZOBACTAM 3.375 GM in SODIUM CHLORIDE 0.9% 100 ML IVPB SCH ×2 (04:08→11:23)
[2020-02-23] MEDS: LACTATED RINGERS 1,000 ML IV SCH ×2 (04:09→11:24)
[2020-02-23] MEDS: PANTOPRAZOLE 40 MG/10 ML VIAL IVP SCH (08:08)
[2020-02-23] MEDS: HEPARIN SODIUM,PORCINE 5,000 UNIT/ML 1 ML VIAL SQ SCH (08:08)
[2020-02-23 09:17] VITALS: BP 120/74; PULSE 71; RESP 20; TEMP 98.3
[2020-02-23] MEDS: HYDROcodone/APAP 5-325MG 1 EACH TAB PO PRN ×2 (11:24→15:10)
--- NOTE | 2020-02-23 15:57 | P.DS ---
Providers Date of admission: 02/21/20 17:45 Expected date of discharge: 02/23/20 Attending physician: Sg Sosa Consults: 02/22/20 13:22 Consult Physician Routine Consulting Provider: Rio Snider Consult Reason/Comments: medical management Do you want consulting provider notified?: Yes Primary care physician: Asha Brown Hospital Course: Discharge diagnosis 1. Acute cholecystitis status post laparoscopic cholecystectomy Hospital course This is a 29-year-old female with no snacking past medical history. She presents to the emergency room with complaints of right upper quadrant and epigastric abdominal pain with nausea and vomiting 3 days. She reports the pain is very sharp and it moves across her upper abdomen and into her back. Pain is worse after eating. Abdominal ultrasound shows multiple non-shadowing echogenic structures within the gallbladder likely related to tiny gallstones versus gallbladder polyps. No gallbladder wall thickening. Computed tomography scan of the abdomen and pelvis showed diverticulosis without acute diverticulitis. Patient has been admitted to the hospital for acute cholecystitis. She underwent a laparoscopic cholecystectomy. She tolerated surgery well. Her pain is controlled. She is tolerating diet. She's afebrile. She is up and ambulating. She is stable for discharge. Please refer to chart for any further details. Physician Composition Floor Setter note has been reviewed by physician. Signing provider agrees with the documented findings, assessment, and plan of care. Patient Condition at Discharge: Stable Plan - Discharge Summary Discharge Rx Participant: Yes New Discharge Prescriptions: New Docusate [Colace] 100 mg PO BID #30 capsule Hydrocodone/Acetaminophen [Marsteller 5-325] 1 tab PO Q6HR PRN 3 Days #12 tab PRN Reason: Pain Discharge Medication List Docusate [Colace] 100 mg PO BID #30 capsule 02/23/20 [Rx] Hydrocodone/Acetaminophen [Marsteller 5-325] 1 tab PO Q6HR PRN 3 Days #12 tab 02/23/20 [Rx] Follow up Appointment(s)/Referral(s): Stephanie Barry MD [Primary Care Provider] - 02/29/20 9:30 am Sg Sosa MD [STAFF PHYSICIAN] - 02/29/20 2:45 pm Activity/Diet/Wound Care/Special Instructions: No driving while taking [place] No lifting over 10 pounds You may shower. No soaking or tub baths for 2 weeks Very light activity until you are reevaluated at your follow up appointment with your surgeon Low-fat diet Discharge Disposition: HOME SELF-CARE
--- NOTE | 2020-02-23 19:12 | CONS ---
CONSULTATION DATE OF SERVICE: 02/23/2020. REASON FOR CONSULTATION: Advice regarding cholecystitis and other medical issues, requested by Dr. Sosa. HISTORY OF PRESENT ILLNESS: This 29-year-old woman with a past medical history of tubal ligation. No other significant medical or surgical issues being followed by Dr. Barry in the outpatient setting. The patient was admitted with abdominal pain. Patient was found to have acute cholecystitis. The patient underwent laparoscopic cholecystectomy by Dr. Sosa. There is no history of fever, rigors or chills. No history of headache. No loss of consciousness. No history of chest pain or palpations at this time. PAST MEDICAL HISTORY: Tubal ligation. No significant cardiovascular illness. MEDICATIONS: None. ALLERGIES: None. FAMILY HISTORY: No history of heart disease or strokes in the family. SOCIAL HISTORY: History of smoking. No history of alcohol. REVIEW OF SYSTEMS: ENT: No diminished vision. No diminished hearing. Cardiovascular: No angina. No palpitations. Respiration: No cough. No hemoptysis. GI: As mentioned earlier. no dysuria. NERVOUS SYSTEM: No numbness or weakness. ALLERGY/IMMUNOLOGY: No asthma or hayfever. MUSCULOSKELETAL as mentioned earlier. HEMATOLOGY/ONCOLOGY: No history of anemia. ENDOCRINE: No history of diabetes or hypothyroidism. Constitutional: As mentioned earlier. DERMATOLOGY: Negative. RHEUMATOLOGY negative. PSYCHIATRY as mentioned earlier. PHYSICAL EXAMINATION: Alert and oriented times three. Pulse is 71, blood pressure 120/77. Respirations 20. Temperature 98.3, pulse ox 98% on room air. HEENT: Conjunctivae normal. NECK: No JVD. CARDIOVASCULAR: S1, S2 normal. Respiration: Breath sounds diminished the bases. No rhonchi. No crackles. ABDOMEN: Soft. Status post surgery. Legs are no edema. No swelling. NERVOUS SYSTEM: No focal deficits. LABORATORY DATA: CBC/CMP within normal limits. UA noted. ASSESSMENT: 1. Acute cholecystitis, status post laparoscopic cholecystectomy. 2. History of tubal ligation. 3. Rule out urinary tract infection. RECOMMENDATIONS AND DISCUSSION: This 29-year-old woman who presented with multiple medical issues, we will monitor the patient closely, continue the current medications. Incentive spirometry. DVT prophylaxis. IV Zosyn. Resume the home medications and closely follow with Dr. Barry who is the primary physician. Thank you Dr. Sosa for letting us participate in the care of this patient. MMODL / IJN: [id number] /
== END 2020-02-23 15:55 | disposition home or self-care (01) ==
LOC: EC 12:29 → 6PED 17:45
PROVIDERS: ADMIT Surgery; ATTEND Surgery
DX: K81.0 Acute cholecystitis (principal); Z98.51 Tubal ligation status; K57.90 Diverticulosis of intestine, part unspecified, without perforation or abscess without bleeding; Z87.891 Personal history of nicotine dependence
CPT/HCPCS: 96361 ×2; 96376 ×2; 96374; 96375; 99285; 36415; 88304; 80053; 82150; 83605; 83690; 85025; 81001; 81025; 76705; 74177; 47562; G0378 ×3; J2543 ×2; J2250; J1644 ×2; J1100; J2710; J2405 ×2; J2001; J3010; J0330; J2704; C9113 ×3; J1170 ×3; Q9967

== ENCOUNTER 2020-11-27 03:19 | Emergency (ER) | payer OTHER ==
[2020-11-27 03:26] VITALS: TEMP 97.3
[2020-11-27 04:28] LABS: ALT 11 U/L (4-34); AST 21 U/L (14-36); African American GFR (CKD) >90 (>60 ml/min/1.73 sqM); Albumin 4.3 g/dL (3.5-5.0); Alkaline Phosphatase 59 U/L (38-126); Amylase 70 U/L (30-110); Anion Gap 9 mmol/L; Blood Urea Nitrogen 12 mg/dL (7-17); C Reactive Protein 0.8 mg/dL (<1.0); Calcium 9.7 mg/dL (8.4-10.2); Carbon Dioxide 25 mmol/L (22-30); Chloride 105 mmol/L (98-107); Glucose 100 mg/dL (74-99); Lipase 174 U/L (23-300); Non-African American GFR(CKD) >90 (>60 ml/min/1.73 sqM); Potassium 3.9 mmol/L (3.5-5.1); Sodium 139 mmol/L (137-145); Total Bilirubin 0.6 mg/dL (0.2-1.3); Total Protein 7.1 g/dL (6.3-8.2)
[2020-11-27 04:30] LABS: Basophils % (A) 0 %; Eosinophils # (A) 0.1 k/uL (0-0.7); Eosinophils % (A) 1 %; HCT 42.1 % (34.0-46.0); HGB 14.1 gm/dL (11.4-16.0); Lymphocytes # (A) 1.3 k/uL (1.0-4.8); Lymphocytes % (A) 12 %; MCH 28.9 pg (25.0-35.0); MCHC 33.5 g/dL (31.0-37.0); MCV 86.2 fL (80.0-100.0); Mean Platelet Volume 8.3; Monocytes # (A) 0.5 k/uL (0-1.0); Monocytes % (A) 5 %; Neutrophils # (A) 8.6 k/uL (1.3-7.7); Neutrophils % (A) 81 %; Platelet Count 178 k/uL (150-450); RBC 4.88 m/uL (3.80-5.40); RDW 12.5 % (11.5-15.5); WBC 10.7 k/uL (3.8-10.6)
[2020-11-27] MEDS ORDERED: SODIUM CHLORIDE 0.9% 500 ML 500 ML IV STA (04:32)
[2020-11-27] MEDS ORDERED: MORPHINE SULFATE 4 MG/ML SYRINGE IV STA (04:32)
[2020-11-27 04:35] LABS: Appearance,Urine Cloudy (Clear); Bacteria,Urine Rare /hpf; Bilirubin,Urine Negative (Negative); Blood,Urine Negative (Negative); Color,Urine Yellow; Glucose,Urine (UA) Negative (Negative); Ketones,Urine Negative (Negative); Leukocyte Esterase,Urine Trace (Negative); Mucus,Urine Rare /hpf; Nitrite,Urine Negative (Negative); PH, Urine 7.5 (5.0-8.0); Protein,Urine Negative (Negative); RBC,Urine 1 /hpf (0-5); Specific Gravity,Urine 1.017 (1.001-1.035); Squamous Epithelial Cell,Urine 5 /hpf (0-4); WBC,Urine 4 /hpf (0-5)
[2020-11-27] MEDS ORDERED: ONDANSETRON 4 MG/2 ML VIAL IVP STA ×2 (04:42→04:43)
--- NOTE | 2020-11-27 04:52 | CT ---
EXAMINATION TYPE: CT abdomen pelvis wo con DATE OF EXAM: 11/27/2020 COMPARISON: 02/21/2020 HISTORY: abd pain, hx of cholecystectomy, and tubal CT DLP: 441.9 mGycm Automated exposure control for dose reduction was used. Images obtained from the diaphragm to the floor the pelvis with no contrast. Lung bases are clear. There is no pleural effusion. Heart size is normal. There is no pericardial eff usion. Liver spleen stomach pancreas appear normal. Bile ducts are not dilated. There is no adrenal m ass. Stomach appears intact. Kidneys have normal size. There is 5 mm calculus posterior left kidney. This is seen in the area of cortical thinning and could be related to renal scarring and not changed compared to old exam. There is no hydronephrosis. Ureters are not dilated. There is no retroperitonea l adenopathy. Bladder distends smoothly. Uterus is anteverted. There are clips apparently from tubal ligation. There is moderate free fluid in the pelvis. Appendix appears normal. There is no evidence of a bowel obstruction. There is no evidence of free air. There is some small alexei wel mild distention in the right lower quadrant. This is likely ileus. Bowel measures up to 2.3 cm. I do not see evidence of a bowel obstruction. The lumbar vertebra have normal alignment. Posterior elements are intact. Disc spaces are normal. Bon y pelvis is intact. Hip joints are intact. Sacroiliac joints are intact. IMPRESSION: Normal appendix. There is some mild small bowel ileus in the right lower quadrant that is a change co mpared to old exam. There is mild to moderate free fluid in the pelvis which is new compared to old e xam. Fluid has density of 9 which is probably nonhemorrhagic
[2020-11-27 06:06] VITALS: RESP 16
--- NOTE | 2020-11-27 06:29 | ED ---
Abdominal Pain HPI - General Chief Complaint: Abdominal Pain Stated Complaint: Abdominal Pain Time Seen by Provider: 11/27/20 03:26 Source: patient Mode of arrival: ambulatory Limitations: no limitations - History of Present Illness MD Complaint: abdominal pain -: hour(s) Location: periumbilical Radiation: none Severity: severe Quality: burning Consistency: constant Improves With: nothing Worsens With: nothing Associated Symptoms: nausea - Related Data Previous Rx's Medication Instructions Recorded Docusate [Colace] 100 mg PO BID #30 capsule 02/23/20 Hydrocodone/Acetaminophen [[place] 1 tab PO Q6HR PRN 3 Days #12 tab 02/23/20 5-325] Ondansetron Odt [Zofran ODT] 4 mg PO Q8HR PRN #10 tab 11/27/20 Allergies Allergy/AdvReac Type Severity Reaction Status Date / Time No Known Allergies Allergy Verified 11/27/20 03:26 Review of Systems ROS Statement: Those systems with pertinent positive or pertinent negative responses have been documented in the HPI. ROS Other: All systems not noted in ROS Statement are negative. Constitutional: Denies: fever, chills Respiratory: Denies: cough, dyspnea Cardiovascular: Denies: chest pain, palpitations Gastrointestinal: Reports: as per HPI, abdominal pain, nausea. Denies: vomiting, diarrhea, constipation Genitourinary: Denies: dysuria, hematuria, discharge, abnormal menses Musculoskeletal: Denies: back pain Skin: Denies: rash Neurological: Denies: headache, weakness, numbness Past Medical History Past Medical History: No Reported History History of Any Multi-Drug Resistant Organisms: None Reported Past Surgical History: Cholecystectomy, Tubal Ligation Additional Past Surgical History / Comment(s): tubal ligation Past Anesthesia/Blood Transfusion Reactions: No Reported Reaction Past Psychological History: No Psychological Hx Reported Smoking Status: Never smoker Past Alcohol Use History: Rare Past Drug Use History: None Reported - Past Family History Mother Family Medical History: No Reported History General Exam Limitations: no limitations General appearance: alert, in no apparent distress Head exam: Present: atraumatic, normocephalic Eye exam: Present: normal appearance. Absent: scleral icterus, conjunctival injection ENT exam: Present: normal oropharynx Respiratory exam: Present: normal lung sounds bilaterally. Absent: respiratory distress, wheezes, rales, rhonchi, stridor Cardiovascular Exam: Present: regular rate, normal rhythm, normal heart sounds. Absent: systolic murmur, diastolic murmur, rubs, gallop GI/Abdominal exam: Present: soft, tenderness (Mild periumbilical tenderness with out rebound or guarding). Absent: distended, guarding, rebound, rigid, mass Extremities exam: Present: normal inspection, normal capillary refill. Absent: pedal edema, calf tenderness Back exam: Present: normal inspection. Absent: CVA tenderness (R), CVA tenderness (L) Neurological exam: Present: alert Skin exam: Present: warm, dry, intact, normal color. Absent: rash Course Vital Signs 11/27/20 11/27/20 11/27/20 03:24 06:06 06:46 Temperature 97.3 F L 97.3 F L Pulse Rate 93 90 92 Respiratory 18 16 16 Rate Blood Pressure 128/87 117/76 123/87 O2 Sat by Pulse 100 95 95 Oximetry Medical Decision Making - Medical Decision Making Patient is a 30-year-old woman with abdominal pain and mild tenderness on the exam. Computed tomography scan is not indicative of appendicitis but with no definite etiology discussed appropriate further care and follow-up as well as return parameters with this patient - Lab Data Result diagrams: 11/27/20 03:35 11/27/20 03:35 Lab Results 11/27/20 11/27/20 11/27/20 Range/Units 03:35 03:35 03:35 WBC 10.7 H (3.8-10.6) k/uL RBC 4.88 (3.80-5.40) m/uL Hgb 14.1 (11.4-16.0) gm/dL Hct 42.1 (34.0-46.0) % MCV 86.2 (80.0-100.0) fL MCH 28.9 (25.0-35.0) pg MCHC 33.5 (31.0-37.0) g/dL RDW 12.5 (11.5-15.5) % Plt Count 178 (150-450) k/uL MPV 8.3 Neutrophils % 81 % Lymphocytes % 12 % Monocytes % 5 % Eosinophils % 1 % Basophils % 0 % Neutrophils # 8.6 H (1.3-7.7) k/uL Lymphocytes # 1.3 (1.0-4.8) k/uL Monocytes # 0.5 (0-1.0) k/uL Eosinophils # 0.1 (0-0.7) k/uL Basophils # 0.0 (0-0.2) k/uL Sodium (137-145) mmol/L Potassium (3.5-5.1) mmol/L Chloride (98-107) mmol/L Carbon Dioxide (22-30) mmol/L Anion Gap mmol/L BUN (7-17) mg/dL Creatinine (0.52-1.04) mg/dL Est GFR (CKD-EPI)AfAm (>60 ml/min/1.73 sqM) Est GFR (CKD-EPI)NonAf (>60 ml/min/1.73 sqM) Glucose (74-99) mg/dL Calcium (8.4-10.2) mg/dL Total Bilirubin (0.2-1.3) mg/dL AST (14-36) U/L ALT (4-34) U/L Alkaline Phosphatase (38-126) U/L C-Reactive Protein (<1.0) mg/dL Total Protein (6.3-8.2) g/dL Albumin (3.5-5.0) g/dL Amylase (30-110) U/L Lipase (23-300) U/L Urine Color Yellow Urine Appearance Cloudy H (Clear) Urine pH 7.5 (5.0-8.0) Ur Specific [place] 1.017 (1.001-1.035) Urine Protein Negative (Negative) Urine Glucose (UA) Negative (Negative) Urine Ketones Negative (Negative) Urine Blood Negative (Negative) Urine Nitrite Negative (Negative) Urine Bilirubin Negative (Negative) Urine Urobilinogen 2.0 (<2.0) mg/dL Ur Leukocyte Esterase Trace H (Negative) Urine RBC 1 (0-5) /hpf Urine WBC 4 (0-5) /hpf Ur Squamous Epith Cells 5 H (0-4) /hpf Urine Bacteria Rare H (None) /hpf Urine Mucus Rare H (None) /hpf Urine HCG, Qual Not Detected (Not Detectd) 11/27/20 Range/Units 03:35 WBC (3.8-10.6) k/uL RBC (3.80-5.40) m/uL Hgb (11.4-16.0) gm/dL Hct (34.0-46.0) % MCV (80.0-100.0) fL MCH (25.0-35.0) pg MCHC (31.0-37.0) g/dL RDW (11.5-15.5) % Plt Count (150-450) k/uL MPV Neutrophils % % Lymphocytes % % Monocytes % % Eosinophils % % Basophils % % Neutrophils # (1.3-7.7) k/uL Lymphocytes # (1.0-4.8) k/uL Monocytes # (0-1.0) k/uL Eosinophils # (0-0.7) k/uL Basophils # (0-0.2) k/uL Sodium 139 (137-145) mmol/L Potassium 3.9 (3.5-5.1) mmol/L Chloride 105 (98-107) mmol/L Carbon Dioxide 25 (22-30) mmol/L Anion Gap 9 mmol/L BUN 12 (7-17) mg/dL Creatinine 0.69 (0.52-1.04) mg/dL Est GFR (CKD-EPI)AfAm >90 (>60 ml/min/1.73 sqM) Est GFR (CKD-EPI)NonAf >90 (>60 ml/min/1.73 sqM) Glucose 100 H (74-99) mg/dL Calcium 9.7 (8.4-10.2) mg/dL Total Bilirubin 0.6 (0.2-1.3) mg/dL AST 21 (14-36) U/L ALT 11 (4-34) U/L Alkaline Phosphatase 59 (38-126) U/L C-Reactive Protein 0.8 (<1.0) mg/dL Total Protein 7.1 (6.3-8.2) g/dL Albumin 4.3 (3.5-5.0) g/dL Amylase 70 (30-110) U/L Lipase 174 (23-300) U/L Urine Color Urine Appearance (Clear) Urine pH (5.0-8.0) Ur Specific [place] (1.001-1.035) Urine Protein (Negative) Urine Glucose (UA) (Negative) Urine Ketones (Negative) Urine Blood (Negative) Urine Nitrite (Negative) Urine Bilirubin (Negative) Urine Urobilinogen (<2.0) mg/dL Ur Leukocyte Esterase (Negative) Urine RBC (0-5) /hpf Urine WBC (0-5) /hpf Ur Squamous Epith Cells (0-4) /hpf Urine Bacteria (None) /hpf Urine Mucus (None) /hpf Urine HCG, Qual (Not Detectd) Disposition Clinical Impression: Ileus, Abdominal pain Disposition: HOME SELF-CARE Condition: Good Instructions (If sedation given, give patient instructions): Abdominal Pain (ED), Ileus (ED) Prescriptions: Ondansetron Odt [Zofran ODT] 4 mg PO Q8HR PRN #10 tab PRN Reason: Nausea Is patient prescribed a controlled substance at d/c from ED?: No Referrals: Stephanie Barry MD [Primary Care Provider] - 1-2 days
[2020-11-27 06:47] VITALS: BP 123/87; PULSE 92
== END 2020-11-27 06:47 | disposition home or self-care (01) ==
LOC: EC 03:19
DX: K56.7 Ileus, unspecified (principal); Z90.49 Acquired absence of other specified parts of digestive tract
CPT/HCPCS: 36415; 80053; 82150; 83690; 85025; 86140; 81001; 81025; 74176; 96374; 96375; 99284; J2270; J2405

== ENCOUNTER 2021-08-24 09:24 | Emergency (ER) | payer OTHER ==
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
[2021-08-24 09:42] VITALS: TEMP 98.4
[2021-08-24] MEDS ORDERED: LORazepam 1 MG TAB PO STA (09:43)
[2021-08-24] MEDS ORDERED: SODIUM CHLORIDE 0.9% 1,000 ML IV STA (09:44)
[2021-08-24 10:02] LABS: Basophils # (A) 0.1 k/uL (0-0.2); Basophils % (A) 1 %; Eosinophils % (A) 0 %; HCT 38.3 % (34.0-46.0); HGB 13.1 gm/dL (11.4-16.0); Lymphocytes # (A) 1.1 k/uL (1.0-4.8); Lymphocytes % (A) 9 %; MCH 28.5 pg (25.0-35.0); MCHC 34.2 g/dL (31.0-37.0); MCV 83.4 fL (80.0-100.0); Mean Platelet Volume 7.9; Monocytes # (A) 0.5 k/uL (0-1.0); Monocytes % (A) 4 %; Neutrophils # (A) 11.5 k/uL (1.3-7.7); Neutrophils % (A) 86 %; Platelet Count 215 k/uL (150-450); RDW 12.8 % (11.5-15.5); WBC 13.4 k/uL (3.8-10.6)
[2021-08-24 10:03] VITALS: RESP 18
[2021-08-24 10:18] LABS: ALT 16 U/L (4-34); AST 21 U/L (14-36); African American GFR (CKD) >90 (>60 ml/min/1.73 sqM); Albumin 4.7 g/dL (3.5-5.0); Alcohol 45 mg/dL; Alkaline Phosphatase 53 U/L (38-126); Anion Gap 13 mmol/L; Blood Urea Nitrogen 9 mg/dL (7-17); Calcium 9.2 mg/dL (8.4-10.2); Carbon Dioxide 23 mmol/L (22-30); Chloride 106 mmol/L (98-107); Glucose 98 mg/dL (74-99); Non-African American GFR(CKD) >90 (>60 ml/min/1.73 sqM); Potassium 3.7 mmol/L (3.5-5.1); Sodium 142 mmol/L (137-145); Total Bilirubin 0.3 mg/dL (0.2-1.3); Total Protein 7.7 g/dL (6.3-8.2)
[2021-08-24 10:29] LABS: Amorphous Sediment,Urine Moderate /hpf; Appearance,Urine Cloudy (Clear); Bacteria,Urine Rare /hpf; Bilirubin,Urine Negative (Negative); Blood,Urine Large (Negative); Color,Urine Yellow; Glucose,Urine (UA) Negative (Negative); Ketones,Urine Trace (Negative); Leukocyte Esterase,Urine Negative (Negative); Mucus,Urine Rare /hpf; Nitrite,Urine Negative (Negative); Protein,Urine Trace (Negative); RBC,Urine >182 /hpf (0-5); Specific Gravity,Urine 1.017 (1.001-1.035); Urobilinogen,Urine <2.0 mg/dL (<2.0); WBC,Urine 2 /hpf (0-5)
[2021-08-24 10:37] LABS: Amphetamine Screen,Urine Not Detected (NotDetected); Barbiturate Screen,Urine Not Detected (NotDetected); Benzodiazepines Screen,Urine Not Detected (NotDetected); Cocaine Screen,Urine Detected (NotDetected); Methadone Screen, Urine Not Detected (NotDetected); Opiate Screen,Urine Not Detected (NotDetected); Oxycodone Screen, Urine Detected (NotDetected); Phencyclidine Screen,Urine Not Detected (NotDetected); Tricyclic Antidepressant,Urine Not Detected (NotDetected); Urn Cannabinoid Scrn Not Detected (NotDetected)
[2021-08-24] MEDS ORDERED: ONDANSETRON 4 MG/2 ML VIAL IVP STA (11:04)
[2021-08-24 11:39] VITALS: BP 124/84; PULSE 98
== END 2021-08-24 11:39 | disposition home or self-care (01) ==
LOC: EC 09:24
DX: T18.9XXA Foreign body of alimentary tract, part unspecified, initial encounter (principal); R00.2 Palpitations; F14.90 Cocaine use, unspecified, uncomplicated; X58.XXXA Exposure to other specified factors, initial encounter
CPT/HCPCS: 36415; 93005; 80053; 85025; 81001; 80306; 99285; 96374; 96361; G0480; J2405; 80320

== ENCOUNTER 2022-01-30 07:33 | Emergency (ER) | payer OTHER ==
[2022-01-30 08:01] VITALS: RESP 18
--- NOTE | 2022-01-30 08:44 | ED ---
General Adult HPI - General Chief complaint: Shortness of Breath Stated complaint: possible pneumonia Time Seen by Provider: 01/30/22 08:06 Source: patient, RN notes reviewed Mode of arrival: ambulatory Limitations: no limitations - History of Present Illness Initial comments: 31-year-old female with no significant past medical history presents to the emergency department with shortness of breath. She she has been feeling sick with flulike symptoms for a couple of weeks. However for the last 7 days her symptoms of congestion and cough have been progressively worse. She admits to accompanying symptoms of headache and chills. Denies known fevers, sore throat, chest pain, palpitations, abdominal pain, dysuria, hematuria. She has not tried anything for her symptoms. She denies any recent contacts. Denies being vaccinated against Covid or flu. - Related Data Previous Rx's Medication Instructions Recorded Docusate [Colace] 100 mg PO BID #30 capsule 02/23/20 Hydrocodone/Acetaminophen [[place] 1 tab PO Q6HR PRN 3 Days #12 tab 02/23/20 5-325] Ondansetron Odt [Zofran ODT] 4 mg PO Q8HR PRN #10 tab 11/27/20 Benzonatate 100 mg PO Q8HR #10 cap 01/30/22 predniSONE [Deltasone] 20 mg PO BID #10 tab 01/30/22 Allergies Allergy/AdvReac Type Severity Reaction Status Date / Time Iodinated Contrast Media Allergy Anaphylaxis Verified 01/30/22 08:02 Penicillins Allergy Anaphylaxis Verified 01/30/22 08:02 Review of Systems ROS Statement: Those systems with pertinent positive or pertinent negative responses have been documented in the HPI. ROS Other: All systems not noted in ROS Statement are negative. Past Medical History Past Medical History: No Reported History History of Any Multi-Drug Resistant Organisms: None Reported Past Surgical History: Cholecystectomy, Tubal Ligation Additional Past Surgical History / Comment(s): tubal ligation Past Anesthesia/Blood Transfusion Reactions: No Reported Reaction Past Psychological History: No Psychological Hx Reported Smoking Status: Never smoker Past Alcohol Use History: Rare Past Drug Use History: Cocaine - Past Family History Mother Family Medical History: No Reported History General Exam Limitations: no limitations General appearance: alert, in no apparent distress Head exam: Present: atraumatic, normocephalic, normal inspection Eye exam: Present: normal appearance, PERRL, EOMI. Absent: scleral icterus, conjunctival injection, periorbital swelling ENT exam: Present: normal exam, mucous membranes moist Neck exam: Present: normal inspection. Absent: tenderness, meningismus, lymphadenopathy Respiratory exam: Present: normal lung sounds bilaterally. Absent: respiratory distress, wheezes, rales, rhonchi, stridor, accessory muscle use, decreased breath sounds Cardiovascular Exam: Present: regular rate, normal rhythm, normal heart sounds. Absent: systolic murmur, diastolic murmur, rubs, gallop, clicks GI/Abdominal exam: Present: soft, normal bowel sounds. Absent: distended, tenderness, guarding, rebound, rigid Extremities exam: Present: normal inspection, full ROM, normal capillary refill. Absent: tenderness, pedal edema, joint swelling, calf tenderness Back exam: Present: normal inspection Neurological exam: Present: alert, oriented X3, CN II-XII intact Psychiatric exam: Present: normal affect, normal mood Skin exam: Present: warm Course Vital Signs 01/30/22 07:59 Temperature 98.0 F Pulse Rate 95 Respiratory 18 Rate Blood Pressure 130/81 O2 Sat by Pulse 96 Oximetry Medical Decision Making - Medical Decision Making 31-year-old female presenting to the emergency department with chief complaint of a cough. Patient was tested for Covid flu and RSV all of which were negative. I interpreted the following: Chest x-ray suggestive of bronchitis, no evidence of pneumonia or effusion. I discussed the results in detail with the patient all questions addressed. Patient was given a prescription for prednisone and benzonatate, encouraged to follow up with primary care in 1-2 days or as needed. I discussed the case with ORION Maldonado likely with plan for discharge . - Lab Data Lab Results 01/30/22 Range/Units 08:23 Influenza Type A (PCR) Not Detected (Not Detectd) Influenza Type B (PCR) Not Detected (Not Detectd) RSV (PCR) Not Detected (Not Detectd) SARS-CoV-2 (PCR) Not Detected (Not Detectd) Disposition Clinical Impression: Bronchitis Disposition: HOME SELF-CARE Condition: Stable Instructions (If sedation given, give patient instructions): Acute Bronchitis (ED) Additional Instructions: These return to the nearest ER if worsening symptoms of cough or shortness of breath Prescriptions: Benzonatate 100 mg PO Q8HR #10 cap predniSONE [Deltasone] 20 mg PO BID #10 tab Is patient prescribed a controlled substance at d/c from ED?: No Referrals: None,Stated [Primary Care Provider] - 1-2 days
--- NOTE | 2022-01-30 08:58 | XR ---
EXAMINATION TYPE: XR chest 2V DATE OF EXAM: 01/30/2022 COMPARISON: NONE TECHNIQUE: PA and lateral views submitted. HISTORY: Cough FINDINGS: The lungs are clear and there is no pneumothorax, pleural effusion, or focal pneumonia. Heart size normal. Coarsened interstitium. IMPRESSION: 1. Correlate for bronchitis or viral bronchiolitis..
[2022-01-30 10:09] VITALS: BP 126/83; PULSE 85; TEMP 97.8
== END 2022-01-30 10:09 | disposition home or self-care (01) ==
LOC: EC 07:33
DX: J40 Bronchitis, not specified as acute or chronic (principal); F14.90 Cocaine use, unspecified, uncomplicated; Z91.041 Radiographic dye allergy status; Z88.0 Allergy status to penicillin; Z20.822 Contact with and (suspected) exposure to COVID-19
CPT/HCPCS: 71046; 87636; 99285

== ENCOUNTER 2022-09-13 16:16 | Emergency (ER) | payer OTHER ==
[2022-09-13 16:22] VITALS: RESP 18
[2022-09-13] MEDS ORDERED: ASPIRIN 81 MG PO STA (16:53)
[2022-09-13 17:19] LABS: Basophils % (A) 0 %; Eosinophils # (A) 0.1 k/uL (0-0.7); Eosinophils % (A) 1 %; HCT 35.6 % (34.0-46.0); HGB 12.2 gm/dL (11.4-16.0); Lymphocytes % (A) 20 %; MCH 27.4 pg (25.0-35.0); MCHC 34.3 g/dL (31.0-37.0); MCV 79.9 fL (80.0-100.0); Mean Platelet Volume 8.5; Monocytes # (A) 0.5 k/uL (0-1.0); Monocytes % (A) 5 %; Neutrophils # (A) 7.3 k/uL (1.3-7.7); Neutrophils % (A) 73 %; Platelet Count 168 k/uL (150-450); RBC 4.46 m/uL (3.80-5.40); RDW 14.1 % (11.5-15.5); WBC 10.1 k/uL (3.8-10.6)
[2022-09-13 17:24] LABS: INR 0.9 (<1.2); Partial Thromboplastin Time 23.1 sec (22.0-30.0); Prothrombin Time 9.8 sec (9.0-12.0)
[2022-09-13 17:28] LABS: ALT 18 U/L (4-34); AST 23 U/L (14-36); African American GFR (CKD) >90 (>60 ml/min/1.73 sqM); Albumin 4.3 g/dL (3.5-5.0); Alkaline Phosphatase 54 U/L (38-126); Anion Gap 9 mmol/L; Blood Urea Nitrogen 13 mg/dL (7-17); Carbon Dioxide 26 mmol/L (22-30); Chloride 106 mmol/L (98-107); Glucose 74 mg/dL (74-99); Magnesium 2.1 mg/dL (1.6-2.3); Non-African American GFR(CKD) >90 (>60 ml/min/1.73 sqM); Potassium 3.8 mmol/L (3.5-5.1); Sodium 141 mmol/L (137-145); Total Bilirubin 0.3 mg/dL (0.2-1.3); Total Protein 7.3 g/dL (6.3-8.2)
[2022-09-13] MEDS ORDERED: LORazepam 2 MG/ML INJ IV STA (18:07)
--- NOTE | 2022-09-13 18:10 | ED ---
Chest Pain HPI - General Chief Complaint: Chest Pain Stated Complaint: numbness in left arm; chest pain Time Seen by Provider: 09/13/22 16:28 Source: patient Mode of arrival: ambulatory Limitations: no limitations - History of Present Illness Initial Comments: 31-year-old female with no significant past medical history presents to the ED with a chief complaint of chest pain. Patient states that at 11 while she was at rest started to experience left-sided chest pain that is sharp in nature. Pain radiates to her left arm. Nursing notes that her left arm feels heavy and has paresthesias. Denies shortness of breath. No other complaints. 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 No family history of early cardiac . - Related Data Home Medications Medication Instructions Recorded Confirmed Doxycycline Monohydrate 100 mg PO BID 01/30/22 01/30/22 Previous Rx's Medication Instructions Recorded Benzonatate 100 mg PO Q8HR #10 cap 01/30/22 predniSONE [Deltasone] 20 mg PO BID #10 tab 01/30/22 Ondansetron Odt [Zofran Odt] 4 mg PO Q8HR PRN #30 tab 04/06/22 Allergies Allergy/AdvReac Type Severity Reaction Status Date / Time Iodinated Contrast Media Allergy Anaphylaxis Verified 09/13/22 16:22 Penicillins Allergy Anaphylaxis Verified 09/13/22 16:22 Review of Systems ROS Statement: Those systems with pertinent positive or pertinent negative responses have been documented in the HPI. ROS Other: All systems not noted in ROS Statement are negative. Past Medical History Past Medical History: No Reported History History of Any Multi-Drug Resistant Organisms: None Reported Past Surgical History: Cholecystectomy, Tubal Ligation Additional Past Surgical History / Comment(s): tubal ligation Past Anesthesia/Blood Transfusion Reactions: No Reported Reaction Past Psychological History: No Psychological Hx Reported Smoking Status: Never smoker Past Alcohol Use History: Rare Past Drug Use History: Cocaine - Past Family History Mother Family Medical History: No Reported History General Exam Limitations: no limitations General appearance: alert, anxious Eye exam: Present: normal appearance ENT exam: Present: mucous membranes moist Neck exam: Present: normal inspection Respiratory exam: Present: normal lung sounds bilaterally Cardiovascular Exam: Present: regular rate, normal rhythm GI/Abdominal exam: Present: soft (Nontender to palpation. No rebound guarding or rigidity.) Neurological exam: Present: alert, oriented X3 Psychiatric exam: Present: anxious Skin exam: Present: warm, dry Course Vital Signs 09/13/22 09/13/22 16:17 19:05 Temperature 99.0 F 98.7 F Pulse Rate 100 93 Respiratory 18 18 Rate Blood Pressure 151/116 135/89 O2 Sat by Pulse 98 98 Oximetry Chest Pain MDM - MDM Was pt. sent in by a medical professional or institution (, PA, MANAGER DATABASE, urgent care, hospital, or care home...) When possible be specific @ -No Did you speak to anyone other than the patient for history (EMS, parent, family, police, friend...)? What history was obtained from this source @ -No Did you review nursing and triage notes (agree or disagree)? Why? @ -I reviewed and agree with nursing and triage notes Were old charts reviewed (outside hosp., previous admission, EMS record, old EKG, old radiological studies, urgent care reports/EKG's, care home records)? Report findings @ -No old charts were reviewed Differential Diagnosis (chest pain, altered mental status, abdominal pain women, abdominal pain men, vaginal bleeding, weakness, fever, dyspnea, syncope, headache, dizziness, GI bleed, back pain, seizure, CVA, palpatations, mental health, musculoskeletal)? @ -Differential Chest Pain: Stable Angina, Unstable Angina, STEMI, NSTEMI Aortic Dissection, Pneumothorax, Musculoskeletal, Esophageal Spasm GERD, Cholecystitis, Pancreatitis, Zoster, this is not meant to be an all-inclusive list. EKG interpreted by me (3pts min.). @ -EKG shows a sinus rhythm at [address] or T-wave changes. ME 138, QRS 81, QT/QTC 381/412. X-rays interpreted by me (1pt min.). @ -Chest x-ray show no acute process. CT interpreted by me (1pt min.). @ -None done U/S interpreted by me (1pt. min.). @ -None done What testing was considered but not performed or refused? (CT, X-rays, U/S, labs)? Why? @ -None What meds were considered but not given or refused? Why? @ -None Did you discuss the management of the patient with other professionals (professionals i.e. , PA, MANAGER DATABASE, lab, RT, psych nurse, transition social worker, automatic gluing machine operator, teacher, ammunition officer, case resource manager)? Give summary @ -No Was smoking cessation discussed for >3mins.? @ -No Was critical care preformed (if so, how long)? @ -No Were there social determinants of health that impacted care today? How? (Homelessness, low income, unemployed, alcoholism, drug addiction, transportation, low edu. Level, literacy, decrease access to med. care, long-term, rehab)? @ -No Was there de-escalation of care discussed even if they declined (Discuss DNR or withdrawal of care, Hospice)? DNR status @ -No What co-morbidities impacted this encounter? (DM, HTN, Smoking, COPD, CAD, Cancer, CVA, ARF, Chemo, Hep., AIDS, mental health diagnosis, sleep apnea, morbid obesity)? @ -None Was patient admitted / discharged? Hospital course, mention meds given and route, prescriptions, significant lab abnormalities, going to OR and other pertinent info. @ -Discharge. Laboratory studies including serial troponins negative. Chest x-ray reveals no acute process. Patient had improvement of pain and sensation in her arm with Ativan. Symptoms likely due to anxiety. Discharged home in stable condition. At this time heart score of 1. Discussed return precautions with patient who verbalizes agreement. Undiagnosed new problem with uncertain prognosis? @ -No Drug Therapy requiring intensive monitoring for toxicity (Heparin, Nitro, Insulin, Cardizem)? @ -No Were any procedures done? @ -No Diagnosis/symptom? @ -Chest pain, anxiety Acute, or Chronic, or Acute on Chronic? @ -Acute Uncomplicated (without systemic symptoms) or Complicated (systemic symptoms)? @ -Uncomplicated Side effects of treatment? @ -No Exacerbation, Progression, or Severe Exacerbation? @ -No Poses a threat to life or bodily function? How? (Chest pain, [place], [place], pneumonia, PE, COPD, DKA, ARF, appy, cholecystitis, CVA, Diverticulitis, Homicidal, Suicidal, threat to staff... and all critical care pts) @ -No Disposition Clinical Impression: Chest pain Disposition: HOME SELF-CARE Condition: Good Instructions (If sedation given, give patient instructions): Chest Pain (ED) Additional Instructions: Please return to the Emergency Department if symptoms worsen or any other concerns. Is patient prescribed a controlled substance at d/c from ED?: No Referrals: Teofilo Tapia MD [Primary Care Provider] - 1-2 days Time of Disposition: 20:09
--- NOTE | 2022-09-13 18:17 | XR ---
EXAMINATION TYPE: XR chest 2V DATE OF EXAM: 09/13/2022 6:09 PM COMPARISON: Chest radiographs from 01/30/2022 TECHNIQUE: XR chest 2V Frontal and lateral views of the chest. CLINICAL INDICATION:Female, 31 years old with history of Chest Pain; FINDINGS: Lungs/Pleura: There is no evidence of pleural effusion, focal consolidation, or pneumothorax. Pulmonary vascularity: Unremarkable. Heart/mediastinum: Cardiomediastinal silhouette is unremarkable. Musculoskeletal: No acute osseous pathology. IMPRESSION: No acute cardiopulmonary disease/process.
[2022-09-13 19:07] VITALS: TEMP 98.7
[2022-09-13 20:19] VITALS: BP 123/79; PULSE 80
== END 2022-09-13 20:19 | disposition home or self-care (01) ==
LOC: EC 16:16
DX: F41.9 Anxiety disorder, unspecified (principal); R07.89 Other chest pain; F14.91 Cocaine use, unspecified, in remission; Z88.0 Allergy status to penicillin; Z88.8 Allergy status to other drugs, medicaments and biological substances; Z90.49 Acquired absence of other specified parts of digestive tract
CPT/HCPCS: 36415; 93005; 80053; 83735; 84484; 85025; 85610; 85730; 71046; 99285; 96374; J2060

== ENCOUNTER 2022-11-21 20:22 | Emergency (ER) | payer OTHER ==
[2022-11-21 20:30] VITALS: RESP 18
[2022-11-21] MEDS ORDERED: LORazepam 1 MG TAB PO STA (20:47)
--- NOTE | 2022-11-21 21:34 | XR ---
EXAMINATION TYPE: XR chest 2V DATE OF EXAM: 11/21/2022 9:17 PM CLINICAL INDICATION:Female, 32 years old with history of palpitations; [facility] COMPARISON: Chest radiographs from 09/13/2022 TECHNIQUE: XR chest 2V Frontal and lateral views of the chest. FINDINGS: Lungs/Pleura: There is no evidence of pleural effusion, focal consolidation, or pneumothorax. Pulmonary vascularity: Unremarkable. Heart/mediastinum: Cardiomediastinal silhouette is unremarkable. Musculoskeletal: No acute osseous pathology. IMPRESSION: No acute cardiopulmonary disease/process.
--- NOTE | 2022-11-21 22:30 | ED ---
General Adult HPI - General Chief complaint: Anxiety Stated complaint: chest pains Time Seen by Provider: 11/21/22 20:32 Source: patient, RN notes reviewed, old records reviewed Mode of arrival: ambulatory Limitations: no limitations - History of Present Illness Initial comments: Patient is a 32-year-old female presents emergency Department complaining of anxiety. Has a history of anxiety. Does not have any as needed medications at home for panic attacks. States she recently broke up her boyfriend and throughout the past day has been having anxiety symptoms which are typical for her when she has panic attacks. She is tries chest tightness, palpitations. He is extremely anxious. Denies nausea, vomiting, abdominal pain. His no other acute complaints at this time. Presents for further evaluation at this time. - Related Data Home Medications Medication Instructions Recorded Confirmed PARoxetine [Paxil] 20 mg PO DAILY 11/21/22 11/21/22 Previous Rx's Medication Instructions Recorded LORazepam [Ativan] 1 mg PO DAILY PRN 3 Days #3 tab 11/21/22 Allergies Allergy/AdvReac Type Severity Reaction Status Date / Time Iodinated Contrast Media Allergy Anaphylaxis Verified 11/21/22 21:34 Penicillins Allergy Nausea & Verified 11/21/22 21:34 Vomiting Review of Systems ROS Statement: Those systems with pertinent positive or pertinent negative responses have been documented in the HPI. Review of Systems: CONST: Endorses anxiety EYES: Denies blurry vision ENT: Denies nasal congestion C/V: Denies Chest pain RESP: Denies shortness of breath GI: Denies abdominal pain : Denies dysuria SKIN: Denies rash. MSK: Denies joint pain. NEURO: Denies headache ROS Other: All systems not noted in ROS Statement are negative. Past Medical History Past Medical History: No Reported History History of Any Multi-Drug Resistant Organisms: None Reported Past Surgical History: Cholecystectomy, Tubal Ligation Additional Past Surgical History / Comment(s): tubal ligation Past Anesthesia/Blood Transfusion Reactions: No Reported Reaction Past Psychological History: Anxiety, Panic Disorder Smoking Status: Never smoker Past Alcohol Use History: Rare Past Drug Use History: Cocaine - Past Family History Mother Family Medical History: No Reported History General Exam - General Exam Comments Initial Comments: General: Appears anxious. HEAD: Normal with no signs of head trauma. EYES: PERRLA, EOMI, conjunctiva normal, no discharge. ENT: Hearing grossly intact, normal oropharynx. RESPIRATORY: Clear breath sounds bilaterally. No wheezes, rales, or rhonchi. C/V: Regular rate and rhythm. S1 and S2 auscultated, peripheral pulses 2+ and intact throughout ABD: Abd is soft, nontender, nondistended EXT: Normal range of motion, no obvious deformity SKIN: No rashes or lesions observed on exposed skin. NEURO: Alert and oriented 4. Limitations: no limitations Course Vital Signs 11/21/22 11/21/22 20:28 20:35 Temperature 98.5 F 98.6 F Pulse Rate 95 88 Respiratory 18 18 Rate Blood Pressure 145/94 150/101 O2 Sat by Pulse 100 98 Oximetry Medical Decision Making - Medical Decision Making Was pt. sent in by a medical professional or institution (Dr. PA, HEALTH PROFESSOR, urgent care, hospital, or [facility]...) When possible be specific @ -No Did you speak to anyone other than the patient for history (EMS, parent, family, police, friend...)? What history was obtained from this source @ -No Did you review nursing and triage notes (agree or disagree)? Why? @ -I reviewed and agree with nursing and triage notes Were old charts reviewed (outside hosp., previous admission, EMS record, old EKG, old radiological studies, urgent care reports/EKG's, [facility] records)? Report findings @ -No old charts were reviewed Differential Diagnosis (chest pain, altered mental status, abdominal pain women, abdominal pain men, vaginal bleeding, weakness, fever, dyspnea, syncope, headache, dizziness, GI bleed, back pain, seizure, CVA, palpatations, mental health, musculoskeletal)? @ -Anxiety, panic attack, pneumothorax. This list is not all-inclusive. EKG interpreted by me (3pts min.). @ -As above X-rays interpreted by me (1pt min.). @ -Chest x-ray reveals no obvious acute cardiopulmonary process. CT interpreted by me (1pt min.). @ -None done U/S interpreted by me (1pt. min.). @ -None done What testing was considered but not performed or refused? (CT, X-rays, U/S, labs)? Why? @ -None What meds were considered but not given or refused? Why? @ -None Did you discuss the management of the patient with other professionals (professionals i.e. , PA, HEALTH PROFESSOR, lab, RT, psych nurse, social service agency director, dental equipment technician, teacher, aoc plans intelligence officer chief, telephonic nurse case manager)? Give summary @ -No Was smoking cessation discussed for >3mins.? @ -No Was critical care preformed (if so, how long)? @ -No Were there social determinants of health that impacted care today? How? (Homelessness, low income, unemployed, alcoholism, drug addiction, transportation, low edu. Level, literacy, decrease access to med. care, prison, rehab)? @ -No Was there de-escalation of care discussed even if they declined (Discuss DNR or withdrawal of care, Hospice)? DNR status @ -No What co-morbidities impacted this encounter? (DM, HTN, Smoking, COPD, CAD, Cancer, CVA, ARF, Chemo, Hep., AIDS, mental health diagnosis, sleep apnea, morbid obesity)? @ -None Was patient admitted / discharged? Hospital course, mention meds given and route, prescriptions, significant lab abnormalities, going to OR and other pertinent info. @ -Based on the patient's presentation and physical exam, she states she is having a panic attack and anxiety attack. We will obtain screening EKG as well as a chest x-ray. She'll be given a dose of Ativan. Vital signs within acceptable limits. She was in agreement this plan. EKG shows no signs of acute ischemia. Chest x-ray unremarkable. On reevaluation, patient is feeling improved. Likely anxiety and panic attack that she experienced. She'll be discharged home at this time. She'll be given a re-prescription of Ativan with 3 tablets. She was in agreement this plan. Strict return precautions discussed. I will provide the patient with a prescription for Ativan 3 tablets. I instructed the patient to follow up with their PCP in the next 1-3 days. I explained that the patient should return to the emergency department if they experience any worsening symptoms. Strict return precautions were discussed with the patient. The patient expressed understanding of these instructions. I answered all questions that the patient had. The patient was discharged home in good condition with their prescriptions and follow up information. Undiagnosed new problem with uncertain prognosis? @ -No Drug Therapy requiring intensive monitoring for toxicity (Heparin, Nitro, Insulin, Cardizem)? @ -No Were any procedures done? @ -No Diagnosis/symptom? @ -Anxiety, panic attack Acute, or Chronic, or Acute on Chronic? @ -Acute Uncomplicated (without systemic symptoms) or Complicated (systemic symptoms)? @ -Complicated Side effects of treatment? @ -No Exacerbation, Progression, or Severe Exacerbation? @ -No Poses a threat to life or bodily function? How? (Chest pain, [place], [place], pneumonia, PE, COPD, DKA, ARF, appy, cholecystitis, CVA, Diverticulitis, Homicidal, Suicidal, threat to staff... and all critical care pts) @ -No - EKG Data -: EKG Interpreted by Me EKG Comments: 12-lead Electrocardiogram Interpretation Note EKG was reviewed and interpreted by myself. 12-lead ECG performed at 2105 is interpreted by me as revealing normal sinus rhythm at a rate of 85 beats per minute. [place] is normal. [place] interval is 136 seconds, QRS ration is 84 ms, QTc is 427 ms.. There were no ST or T wave abnormalities to suggest myocardial isch emia or injury. R wave progression across the precordium was satisfactory. By my interpretation this EKG is non-diagnostic for acute ischemia. Disposition Clinical Impression: Acute anxiety, Panic attack Disposition: HOME SELF-CARE Condition: Good Instructions (If sedation given, give patient instructions): Generalized Anxiety Disorder (ED) Prescriptions: LORazepam [Ativan] 1 mg PO DAILY PRN 3 Days #3 tab PRN Reason: Anxiety Is patient prescribed a controlled substance at d/c from ED?: Yes When asked, does pt state using other controlled substances?: No If prescribed controlled substance>3 days was MAPS reviewed?: Prescribed <3 Days Referrals: Teofilo Tapia MD [Primary Care Provider] - 1-2 days Time of Disposition: 22:15
[2022-11-21 23:06] VITALS: BP 138/87; PULSE 94; TEMP 98.2
== END 2022-11-21 22:58 | disposition home or self-care (01) ==
LOC: EC 20:22
DX: F41.0 Panic disorder [episodic paroxysmal anxiety] (principal); Z88.0 Allergy status to penicillin; Z91.041 Radiographic dye allergy status
CPT/HCPCS: 71046; 93005; 99283

== ENCOUNTER 2022-12-05 03:47 | Emergency (ER) | payer OTHER ==
[2022-12-05 04:07] VITALS: RESP 18; TEMP 98.1
[2022-12-05] MEDS ORDERED: SODIUM CHLORIDE 0.9% 2,000 ML IV STA (04:24)
[2022-12-05] MEDS ORDERED: ONDANSETRON 4 MG/2 ML VIAL IVP STA (04:39)
[2022-12-05] MEDS ORDERED: LORazepam 2 MG/ML INJ IV STA (04:39)
[2022-12-05 05:15] LABS: Basophils % (A) 0 %; Eosinophils % (A) 0 %; HCT 35.6 % (34.0-46.0); HGB 11.7 gm/dL (11.4-16.0); Lymphocytes % (A) 11 %; MCHC 32.9 g/dL (31.0-37.0); MCV 79.2 fL (80.0-100.0); Mean Platelet Volume 8.8; Monocytes # (A) 0.3 k/uL (0-1.0); Monocytes % (A) 3 %; Neutrophils # (A) 7.6 k/uL (1.3-7.7); Neutrophils % (A) 84 %; Platelet Count 182 k/uL (150-450); RDW 13.9 % (11.5-15.5)
[2022-12-05 05:21] LABS: ALT 16 U/L (4-34); AST 24 U/L (14-36); African American GFR (CKD) >90 (>60 ml/min/1.73 sqM); Albumin 4.5 g/dL (3.5-5.0); Alkaline Phosphatase 51 U/L (38-126); Anion Gap 15 mmol/L; Blood Urea Nitrogen 12 mg/dL (7-17); Calcium 9.1 mg/dL (8.4-10.2); Carbon Dioxide 21 mmol/L (22-30); Chloride 107 mmol/L (98-107); Glucose 97 mg/dL (74-99); Lipase 159 U/L (23-300); Non-African American GFR(CKD) >90 (>60 ml/min/1.73 sqM); Potassium 3.8 mmol/L (3.5-5.1); Sodium 143 mmol/L (137-145); Total Bilirubin 0.3 mg/dL (0.2-1.3); Total Protein 7.1 g/dL (6.3-8.2)
[2022-12-05 05:41] LABS: Appearance,Urine Clear (Clear); Bilirubin,Urine Negative (Negative); Color,Urine Colorless; Glucose,Urine (UA) Negative (Negative); Ketones,Urine Trace (Negative); PH, Urine 6.5 (5.0-8.0); Protein,Urine Negative (Negative)
[2022-12-05 05:42] LABS: Blood,Urine Negative (Negative); Leukocyte Esterase,Urine Moderate (Negative); Mucus,Urine Rare /hpf; Nitrite,Urine Negative (Negative); RBC,Urine 1 /hpf (0-5); Squamous Epithelial Cell,Urine 1 /hpf (0-4); Urobilinogen,Urine <2.0 mg/dL (<2.0); WBC,Urine 1 /hpf (0-5)
--- NOTE | 2022-12-05 05:56 | ED ---
General Adult HPI - General Chief complaint: Nausea/Vomiting/Diarrhea Stated complaint: N/V Time Seen by Provider: 12/05/22 03:55 Source: patient Mode of arrival: ambulatory Limitations: no limitations - History of Present Illness Initial comments: 32-year-old female with past medical history of depression who presents emergency department reporting nausea and vomiting. States that she was drinking tonight. It made her very anxious and she started throwing up. Symptoms started around 1 AM. She has been unable to hold down any food or drink. She denies any sick contacts with similar symptoms. No fevers. No hematemesis. No abdominal pain. No diarrhea, constipation, black or bloody stools. No dysuria, hematuria or difficulty voiding. Denies concern for . Last menstrual cycle was last week. Denies any abnormal vaginal bleeding or discharge. Patient did not take anything for the nausea at home. Requesting something for her anxiety. States that she has been taking her antidepressant but understands she needs to follow up with her primary care doctor to get better control of her anxiety. No other alleviating, precipita ting or modifying factors - Related Data Home Medications Medication Instructions Recorded Confirmed PARoxetine [Paxil] 20 mg PO DAILY 11/21/22 11/21/22 Previous Rx's Medication Instructions Recorded LORazepam [Ativan] 1 mg PO DAILY PRN 3 Days #3 tab 11/21/22 LORazepam [Ativan] 0.5 mg PO TID PRN 3 Days #9 tab 12/05/22 Allergies Allergy/AdvReac Type Severity Reaction Status Date / Time Iodinated Contrast Media Allergy Anaphylaxis Verified 12/05/22 03:52 Penicillins Allergy Nausea & Verified 12/05/22 03:52 Vomiting Review of Systems ROS Statement: Those systems with pertinent positive or pertinent negative responses have been documented in the HPI. ROS Other: All systems not noted in ROS Statement are negative. Past Medical History Past Medical History: No Reported History History of Any Multi-Drug Resistant Organisms: None Reported Past Surgical History: Cholecystectomy, Tubal Ligation Additional Past Surgical History / Comment(s): tubal ligation Past Anesthesia/Blood Transfusion Reactions: No Reported Reaction Past Psychological History: Anxiety, Panic Disorder Smoking Status: Never smoker Past Alcohol Use History: Rare Past Drug Use History: None Reported, Cocaine - Past Family History Mother Family Medical History: No Reported History General Exam Limitations: no limitations General appearance: alert, in no apparent distress Head exam: Present: atraumatic, normocephalic, normal inspection Eye exam: Present: normal appearance, PERRL, EOMI. Absent: scleral icterus, conjunctival injection, periorbital swelling ENT exam: Present: normal exam, mucous membranes moist Neck exam: Present: normal inspection. Absent: tenderness, meningismus, lymphadenopathy Respiratory exam: Present: normal lung sounds bilaterally. Absent: respiratory distress, wheezes, rales, rhonchi, stridor Cardiovascular Exam: Present: regular rate, normal rhythm, normal heart sounds. Absent: systolic murmur, diastolic murmur, rubs, gallop, clicks GI/Abdominal exam: Present: soft, normal bowel sounds. Absent: distended, tenderness, guarding, rebound, rigid Extremities exam: Present: normal inspection, full ROM, normal capillary refill. Absent: tenderness, pedal edema, joint swelling, calf tenderness Back exam: Present: normal inspection Neurological exam: Present: alert, oriented X3, CN II-XII intact Psychiatric exam: Present: normal affect, normal mood Skin exam: Present: warm, dry, intact, normal color. Absent: rash Course Vital Signs 12/05/22 12/05/22 03:52 06:13 Temperature 98.1 F Pulse Rate 98 80 Respiratory 18 18 Rate Blood Pressure 147/92 128/85 O2 Sat by Pulse 98 97 Oximetry Medical Decision Making - Medical Decision Making Was pt. sent in by a medical professional or institution (JACQUELINE Cage, STRAIGHTEDGE MACHINE OPERATOR HELPER, urgent care, hospital, or alf...) When possible be specific @ -No Did you speak to anyone other than the patient for history (EMS, parent, family, police, friend...)? What history was obtained from this source @ -No Did you review nursing and triage notes (agree or disagree)? Why? @ -I reviewed and agree with nursing and triage notes Were old charts reviewed (outside hosp., previous admission, EMS record, old EKG, old radiological studies, urgent care reports/EKG's, alf records)? Report findings @ -I reviewed patient's previous ED visit where she reported similar symptoms Differential Diagnosis (chest pain, altered mental status, abdominal pain women, abdominal pain men, vaginal bleeding, weakness, fever, dyspnea, syncope, headache, dizziness, GI bleed, back pain, seizure, CVA, palpatations, mental health, musculoskeletal)? @ -Differential Appendicitis, Cholecystitis, diverticulosis, ischemic bowel, pancreatitis, hepatitis, UTI, gastroenteritis, AAA, incarcerated hernia, bowel obstruction, constipation, inflammatory bowel, hepatitis, peptic ulcer disease, splenic infarction, perforated viscus, vulvitis, ovarian torsion, PID, kidney stone, placenta abruption, anxiety attack this is not meant to be an all-inclusive list EKG interpreted by me (3pts min.). @ -Yes and demonstrates sinus rhythm with rate of 86. MD interval 138. QRS 84. QTC of 412. No acute ST segment elevations or depressions X-rays interpreted by me (1pt min.). @ -None done CT interpreted by me (1pt min.). @ -None done U/S interpreted by me (1pt. min.). @ -None done What testing was considered but not performed or refused? (CT, X-rays, U/S, labs)? Why? @ -None What meds were considered but not given or refused? Why? @ -None Did you discuss the management of the patient with other professionals (professionals i.e. , PA, STRAIGHTEDGE MACHINE OPERATOR HELPER, lab, RT, psych nurse, public health social worker, chemical operations and training, teacher, chief safety officer, case specialist)? Give summary @ -No Was smoking cessation discussed for >3mins.? @ -No Was critical care preformed (if so, how long)? @ -No Were there social determinants of health that impacted care today? How? (Homelessness, low income, unemployed, alcoholism, drug addiction, transportation, low edu. Level, literacy, decrease access to med. care, prison, rehab)? @ -No Was there de-escalation of care discussed even if they declined (Discuss DNR or withdrawal of care, Hospice)? DNR status @ -No What co-morbidities impacted this encounter? (DM, HTN, Smoking, COPD, CAD, Cancer, CVA, ARF, Chemo, Hep., AIDS, mental health diagnosis, sleep apnea, morbid obesity)? @ -Anxiety and depression Was patient admitted / discharged? Hospital course, mention meds given and route, prescriptions, significant lab abnormalities, going to OR and other pertinent info. @ -Upon arrival patient was placed in room 22. Thorough history and physical exam was performed. IV access is established. Patient is given antiemetics and benzos for vomiting and anxiety. Laboratory studies are conducted. A 12-lead EKG was obtained. Results are discussed with the patient. Does feel better after medication administration. Did discuss treatment for acute anxiety at home. Informed her that best treatment options are not benzodiazepines and she needs better control of her anxiety long-term. She will be given a a few tablets of Ativan to take as needed until she is able to discuss the care with her primary care doctor. Patient understood and was agreeable to this. Patient discharged in stable condition Undiagnosed new problem with uncertain prognosis? @ -No Drug Therapy requiring intensive monitoring for toxicity (Heparin, Nitro, Insulin, Cardizem)? @ -No Were any procedures done? @ -No Diagnosis/symptom? @ -Acute nausea/vomiting, acute anxiety Acute, or Chronic, or Acute on Chronic? @ -Acute on chronic Uncomplicated (without systemic symptoms) or Complicated (systemic symptoms)? @ -Complicated Side effects of treatment? @ -No Exacerbation, Progression, or Severe Exacerbation? @ -No Poses a threat to life or bodily function? How? (Chest pain, [place], [place], pneumonia, PE, COPD, DKA, ARF, appy, cholecystitis, CVA, Diverticulitis, Homicidal, Suicidal, threat to staff... and all critical care pts) @ -No - Lab Data Result diagrams: 12/05/22 04:38 12/05/22 04:38 Lab Results 12/05/22 12/05/22 12/05/22 Range/Units 04:38 04:38 04:42 WBC 9.0 (3.8-10.6) k/uL RBC 4.50 (3.80-5.40) m/uL Hgb 11.7 (11.4-16.0) gm/dL Hct 35.6 (34.0-46.0) % MCV 79.2 L (80.0-100.0) fL MCH 26.0 (25.0-35.0) pg MCHC 32.9 (31.0-37.0) g/dL RDW 13.9 (11.5-15.5) % Plt Count 182 (150-450) k/uL MPV 8.8 Neutrophils % 84 % Lymphocytes % 11 % Monocytes % 3 % Eosinophils % 0 % Basophils % 0 % Neutrophils # 7.6 (1.3-7.7) k/uL Lymphocytes # 1.0 (1.0-4.8) k/uL Monocytes # 0.3 (0-1.0) k/uL Eosinophils # 0.0 (0-0.7) k/uL Basophils # 0.0 (0-0.2) k/uL Sodium 143 (137-145) mmol/L Potassium 3.8 (3.5-5.1) mmol/L Chloride 107 (98-107) mmol/L Carbon Dioxide 21 L (22-30) mmol/L Anion Gap 15 mmol/L BUN 12 (7-17) mg/dL Creatinine 0.70 (0.52-1.04) mg/dL Est GFR (CKD-EPI)AfAm >90 (>60 ml/min/1.73 sqM) Est GFR (CKD-EPI)NonAf >90 (>60 ml/min/1.73 sqM) Glucose 97 (74-99) mg/dL Calcium 9.1 (8.4-10.2) mg/dL Total Bilirubin 0.3 (0.2-1.3) mg/dL AST 24 (14-36) U/L ALT 16 (4-34) U/L Alkaline Phosphatase 51 (38-126) U/L Troponin I (0.000-0.034) ng/mL Total Protein 7.1 (6.3-8.2) g/dL Albumin 4.5 (3.5-5.0) g/dL Lipase 159 (23-300) U/L Urine Color Colorless Urine Appearance Clear (Clear) Urine pH 6.5 (5.0-8.0) Ur Specific [place] 1.010 (1.001-1.035) Urine Protein Negative (Negative) Urine Glucose (UA) Negative (Negative) Urine Ketones Trace (Negative) Urine Blood Negative (Negative) Urine Nitrite Negative (Negative) Urine Bilirubin Negative (Negative) Urine Urobilinogen <2.0 (<2.0) mg/dL Ur Leukocyte Esterase Moderate (Negative) Urine RBC 1 (0-5) /hpf Urine WBC 1 (0-5) /hpf Ur Squamous Epith Cells 1 (0-4) /hpf Urine Mucus Rare H (None) /hpf Urine HCG, Qual (Not Detectd) 12/05/22 12/05/22 Range/Units 04:42 04:43 WBC (3.8-10.6) k/uL RBC (3.80-5.40) m/uL Hgb (11.4-16.0) gm/dL Hct (34.0-46.0) % MCV (80.0-100.0) fL MCH (25.0-35.0) pg MCHC (31.0-37.0) g/dL RDW (11.5-15.5) % Plt Count (150-450) k/uL MPV Neutrophils % % Lymphocytes % % Monocytes % % Eosinophils % % Basophils % % Neutrophils # (1.3-7.7) k/uL Lymphocytes # (1.0-4.8) k/uL Monocytes # (0-1.0) k/uL Eosinophils # (0-0.7) k/uL Basophils # (0-0.2) k/uL Sodium (137-145) mmol/L Potassium (3.5-5.1) mmol/L Chloride (98-107) mmol/L Carbon Dioxide (22-30) mmol/L Anion Gap mmol/L BUN (7-17) mg/dL Creatinine (0.52-1.04) mg/dL Est GFR (CKD-EPI)AfAm (>60 ml/min/1.73 sqM) Est GFR (CKD-EPI)NonAf (>60 ml/min/1.73 sqM) Glucose (74-99) mg/dL Calcium (8.4-10.2) mg/dL Total Bilirubin (0.2-1.3) mg/dL AST (14-36) U/L ALT (4-34) U/L Alkaline Phosphatase (38-126) U/L Troponin I <0.012 (0.000-0.034) ng/mL Total Protein (6.3-8.2) g/dL Albumin (3.5-5.0) g/dL Lipase (23-300) U/L Urine Color Urine Appearance (Clear) Urine pH (5.0-8.0) Ur Specific [place] (1.001-1.035) Urine Protein (Negative) Urine Glucose (UA) (Negative) Urine Ketones (Negative) Urine Blood (Negative) Urine Nitrite (Negative) Urine Bilirubin (Negative) Urine Urobilinogen (<2.0) mg/dL Ur Leukocyte Esterase (Negative) Urine RBC (0-5) /hpf Urine WBC (0-5) /hpf Ur Squamous Epith Cells (0-4) /hpf Urine Mucus (None) /hpf Urine HCG, Qual Not Detected (Not Detectd) Disposition Clinical Impression: Acute anxiety, Nausea & vomiting Disposition: HOME SELF-CARE Condition: Stable Instructions (If sedation given, give patient instructions): Acute Nausea and Vomiting (ED), Anxiety (ED) Additional Instructions: Please use the Ativan as needed for anxiety. Follow up with her doctor to find a better solution. Return to the emergency room for any new or worsening symptoms Prescriptions: LORazepam [Ativan] 0.5 mg PO TID PRN 3 Days #9 tab PRN Reason: Anxiety Is patient prescribed a controlled substance at d/c from ED?: Yes When asked, does pt state using other controlled substances?: No If prescribed controlled substance>3 days was MAPS reviewed?: Prescribed <3 Days Referrals: Teofilo Tapia MD [Primary Care Provider] - 1-2 days Time of Disposition: 06:03
[2022-12-05 06:15] VITALS: BP 128/85; PULSE 80
== END 2022-12-05 06:14 | disposition home or self-care (01) ==
LOC: EC 03:47
DX: R11.2 Nausea with vomiting, unspecified (principal); F41.9 Anxiety disorder, unspecified; F32.A Depression, unspecified; F14.90 Cocaine use, unspecified, uncomplicated; Z79.899 Other long term (current) drug therapy; Z88.0 Allergy status to penicillin; Z91.041 Radiographic dye allergy status; Z90.49 Acquired absence of other specified parts of digestive tract
CPT/HCPCS: 36415; 93005; 80053; 83690; 84484; 85025; 81001; 81025; 99284; 96374; 96375; 96361; J2060; J2405

== ENCOUNTER 2023-01-03 06:49 | Emergency (ER) | payer OTHER ==
[2023-01-03 07:04] VITALS: RESP 20; TEMP 99.1
[2023-01-03] MEDS ORDERED: ONDANSETRON 4 MG/2 ML VIAL IVP STA (07:25)
[2023-01-03] MEDS ORDERED: KETOROLAC 15 MG/ML 1 ML VIAL IVP STA (07:46)
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
[2023-01-03 09:34] VITALS: BP 139/98; PULSE 109
== END 2023-01-03 09:18 | disposition home or self-care (01) ==
LOC: EC 06:49
DX: H05.222 Edema of left orbit (principal); F41.9 Anxiety disorder, unspecified; F17.290 Nicotine dependence, other tobacco product, uncomplicated; Z88.0 Allergy status to penicillin; Z91.041 Radiographic dye allergy status; Z79.899 Other long term (current) drug therapy; Y04.8XXA Assault by other bodily force, initial encounter
CPT/HCPCS: 72125; 70486; 70450; 99284; 96374; 96375; J2405; J1885

== ENCOUNTER 2023-02-04 21:28 | Emergency (ER) | payer OTHER ==
[2023-02-04 22:42] LABS: Appearance,Urine Cloudy (Clear); Bacteria,Urine Rare /hpf; Bilirubin,Urine Negative (Negative); Blood,Urine Large (Negative); Color,Urine Yellow; Glucose,Urine (UA) Negative (Negative); Ketones,Urine Negative (Negative); Leukocyte Esterase,Urine Moderate (Negative); Mucus,Urine Few /hpf; Nitrite,Urine Negative (Negative); PH, Urine 5.5 (5.0-8.0); Protein,Urine 1+ (Negative); RBC,Urine >182 /hpf (0-5); Specific Gravity,Urine 1.028 (1.001-1.035); Squamous Epithelial Cell,Urine 4 /hpf (0-4); Urobilinogen,Urine <2.0 mg/dL (<2.0); WBC,Urine 13 /hpf (0-5)
--- NOTE | 2023-02-04 22:59 | ED ---
Abdominal Pain HPI - General Source: patient Mode of arrival: ambulatory Limitations: no limitations <Jerrod Whelan - Last Filed: 02/04/23 23:00> <Jessa Ramírez - Last Filed: 02/05/23 03:40> - General Chief Complaint: Abdominal Pain Stated Complaint: Kidney pain Time Seen by Provider: 02/04/23 22:59 - History of Present Illness Initial Comments: 32-year-old female presenting to the ED with a chief complaint of flank pain. Patient states for the past week has had pain in the left flank. Pain radiates to her abdomen. Since onset, patient reports pain is worsened in severity. Patient also notes over the past week has had some intermittent hematuria. No dysuria. Associated nausea. (Jerrod Whelan) 32-year-old female presenting with chief complaint of left-sided flank pain. Patient states she has had vague flank pain for the last week but tonight it acutely worsened. Pain is wrapping around to the front of the abdomen. She admits to hematuria. She admits to nausea and vomiting. She denies any dysuria, fever, chills. Patient states that she has had a kidney stone several years ago. (Jessa Ramírez) - Related Data Home Medications Medication Instructions Recorded Confirmed PARoxetine [Paxil] 20 mg PO DAILY 11/21/22 11/21/22 Previous Rx's Medication Instructions Recorded LORazepam [Ativan] 1 mg PO DAILY PRN 3 Days #3 tab 11/21/22 LORazepam [Ativan] 0.5 mg PO TID PRN 3 Days #9 tab 12/05/22 Ibuprofen [Motrin] 800 mg PO Q6HR #30 tab 01/03/23 Ketorolac [Toradol] 10 mg PO Q6HR PRN #12 tab 02/05/23 Ondansetron Odt [Zofran Odt] 4 mg PO Q8HR PRN #20 tab 02/05/23 Tamsulosin [Flomax] 0.4 mg PO DAILY #10 cap 02/05/23 Allergies Allergy/AdvReac Type Severity Reaction Status Date / Time Iodinated Contrast Media Allergy Anaphylaxis Verified 02/04/23 21:45 Penicillins Allergy Nausea & Verified 02/04/23 21:45 Vomiting Review of Systems ROS Other: All systems not noted in ROS Statement are negative. <Jerrod Whelan - Last Filed: 02/04/23 23:00> ROS Other: All systems not noted in ROS Statement are negative. <Jessa Ramírez - Last Filed: 02/05/23 03:40> ROS Statement: Those systems with pertinent positive or pertinent negative responses have been documented in the HPI. Past Medical History Past Medical History: No Reported History History of Any Multi-Drug Resistant Organisms: None Reported Past Surgical History: Cholecystectomy, Tubal Ligation Additional Past Surgical History / Comment(s): tubal ligation Past Anesthesia/Blood Transfusion Reactions: No Reported Reaction Past Psychological History: Anxiety, Panic Disorder Smoking Status: Vaper Past Alcohol Use History: Occasional Past Drug Use History: Cocaine - Past Family History Mother Family Medical History: No Reported History <Jerrod Whelan - Last Filed: 02/04/23 23:00> General Exam Limitations: no limitations <Jerrod Whelan - Last Filed: 02/04/23 23:00> Limitations: no limitations General appearance: alert, in no apparent distress Head exam: Present: atraumatic, normocephalic Eye exam: Present: normal appearance Neck exam: Present: normal inspection Respiratory exam: Absent: respiratory distress Cardiovascular Exam: Present: regular rate Back exam: Present: normal inspection. Absent: CVA tenderness (R), CVA tenderness (L) Neurological exam: Present: alert, oriented X3 Psychiatric exam: Present: normal affect, normal mood Skin exam: Present: warm, dry <Jessa Ramírez - Last Filed: 02/05/23 03:40> - General Exam Comments Initial Comments: Visual Physical Exam Vital signs reviewed General: Tearful Head: Normocephalic, atraumatic Eyes: PERRLA, EOMI ENT: Airway patent Chest: Nonlabored breathing Skin: No visual rash, normal skin tone Abdomen: Left CVA tenderness to percussion. Neuro: Alert and oriented 3 Musculoskeletal: No gross abnormalities (Jerrod Whelan) Course Vital Signs 02/04/23 02/05/23 21:43 00:33 Temperature 98.5 F 98.2 F Pulse Rate 87 91 Respiratory 22 24 Rate Blood Pressure 148/89 162/89 O2 Sat by Pulse 96 96 Oximetry Medical Decision Making <Jerrod Whelan - Last Filed: 02/04/23 23:00> - Lab Data Result diagrams: 02/04/23 23:09 02/04/23 23:09 <Jessa Ramírez - Last Filed: 02/05/23 03:40> - Medical Decision Making Quicknote portion performed. Signed Jerrod Whelan PA-C (Jerrod Whelan) Was pt. sent in by a medical professional or institution (, JACQUELINE, CERTIFIED MEDICINE AIDE, urgent care, hospital, or halfway...) When possible be specific @ -No Did you speak to anyone other than the patient for history (EMS, parent, family, police, friend...)? What history was obtained from this source @ -No Did you review nursing and triage notes (agree or disagree)? Why? @ -I reviewed and agree with nursing and triage notes Were old charts reviewed (outside hosp., previous admission, EMS record, old E KG, old radiological studies, urgent care reports/EKG's, halfway records)? Report findings @ -No old charts were reviewed Differential Diagnosis (chest pain, altered mental status, abdominal pain women, abdominal pain men, vaginal bleeding, weakness, fever, dyspnea, syncope, headache, dizziness, GI bleed, back pain, seizure, CVA, palpatations, mental hea lth, musculoskeletal)? @ -Differential includes kidney stone, pyelonephritis, musculoskeletal pain, this is not an all inclusive list EKG interpreted by me (3pts min.). @ -As above CT interpreted by me (1pt min.). @ -Obstructing 4 mm left distal ureter stone. Mild hydronephrosis of the left kidney. U/S interpreted by me (1pt. min.). @ -None done What testing was considered but not performed or refused? (CT, X-rays, U/S, labs)? Why? @ -None What meds were considered but not given or refused? Why? @ -None Did you discuss the management of the patient with other professionals (professionals i.e. JACQUELINE Cage, CERTIFIED MEDICINE AIDE, lab, RT, psych nurse, social work assistant, tax director, teacher, transit police officer, pillowcase cleaner)? Give summary @ -No Was smoking cessation discussed for >3mins.? @ -No Was critical care preformed (if so, how long)? @ -No Were there social determinants of health that impacted care today? How? (Homelessness, low income, unemployed, alcoholism, drug addiction, transportation, low edu. Level, literacy, decrease access to med. care, senior care, rehab)? @ -No Was there de-escalation of care discussed even if they declined (Discuss DNR or withdrawal of care, Hospice)? DNR status @ -No What co-morbidities impacted this encounter? (DM, HTN, Smoking, COPD, CAD, Cancer, CVA, ARF, Chemo, Hep., AIDS, mental health diagnosis, sleep apnea, morbid obesity)? @ -None Was patient admitted / discharged? Hospital course, mention meds given and route, prescriptions, significant lab abnormalities, going to OR and other pertinent info. @ -32-year-old female presenting with chief complaint of left-sided flank pain. She admits to nausea vomiting and hematuria. History and physical are conducted. No leukocytosis or anemia. BUN 19, likely mild dehydration, patient is receiving IV fluids. Creatinine is WNL. Urine shows large blood, there are 13 wbc's likely due to contamination. Negative hCG. CT shows 4 mm obstructing stone. Patient is educated on today's findings. She will be treated with Toradol, Zofran, and Flomax. She is provided with urology follow-up. Follow-up with PCP. Report back to ER with any new or worsening symptoms. Discussed return parameters and answered all questions. Patient conveyed verbal understanding and agreed to the plan. I discussed this case in detail with my attending Dr. Vines Undiagnosed new problem with uncertain prognosis? @ -No Drug Therapy requiring intensive monitoring for toxicity (Heparin, Nitro, In sulin, Cardizem)? @ -No Were any procedures done? @ -No Diagnosis/symptom? @ -Kidney stone Acute, or Chronic, or Acute on Chronic? @ -Acute Uncomplicated (without systemic symptoms) or Complicated (systemic symptoms)? @ -Uncomplicated Side effects of treatment? @ -No Exacerbation, Progression, or Severe Exacerbation? @ -No Poses a threat to life or bodily function? How? (Chest pain, [place], [place], pneumonia, PE, COPD, DKA, ARF, appy, cholecystitis, CVA, Diverticulitis, Homicidal, Suicidal, threat to staff... and all critical care pts) @ -No (Jessa Ramírez) - Lab Data Lab Results 02/04/23 02/04/23 02/04/23 Range/Units 21:59 21:59 23:09 WBC 9.1 (3.8-10.6) k/uL RBC 4.63 (3.80-5.40) m/uL Hgb 12.5 (11.4-16.0) gm/dL Hct 36.3 (34.0-46.0) % MCV 78.4 L (80.0-100.0) fL MCH 26.9 (25.0-35.0) pg MCHC 34.3 (31.0-37.0) g/dL RDW 14.2 (11.5-15.5) % Plt Count 207 (150-450) k/uL MPV 8.8 Neutrophils % 75 % Lymphocytes % 18 % Monocytes % 4 % Eosinophils % 1 % Basophils % 0 % Neutrophils # 6.8 (1.3-7.7) k/uL Lymphocytes # 1.7 (1.0-4.8) k/uL Monocytes # 0.4 (0-1.0) k/uL Eosinophils # 0.1 (0-0.7) k/uL Basophils # 0.0 (0-0.2) k/uL Sodium (137-145) mmol/L Potassium (3.5-5.1) mmol/L Chloride (98-107) mmol/L Carbon Dioxide (22-30) mmol/L Anion Gap mmol/L BUN (7-17) mg/dL Creatinine (0.52-1.04) mg/dL Est GFR (CKD-EPI)AfAm (>60 ml/min/1.73 sqM) Est GFR (CKD-EPI)NonAf (>60 ml/min/1.73 sqM) Glucose (74-99) mg/dL Calcium (8.4-10.2) mg/dL Total Bilirubin (0.2-1.3) mg/dL AST (14-36) U/L ALT (4-34) U/L Alkaline Phosphatase (38-126) U/L Total Protein (6.3-8.2) g/dL Albumin (3.5-5.0) g/dL Amylase (30-110) U/L Lipase (23-300) U/L Urine Color Yellow Urine Appearance Cloudy H (Clear) Urine pH 5.5 (5.0-8.0) Ur Specific [place] 1.028 (1.001-1.035) Urine Protein 1+ H (Negative) Urine Glucose (UA) Negative (Negative) Urine Ketones Negative (Negative) Urine Blood Large H (Negative) Urine Nitrite Negative (Negative) Urine Bilirubin Negative (Negative) Urine Urobilinogen <2.0 (<2.0) mg/dL Ur Leukocyte Esterase Moderate H (Negative) Urine RBC >182 H (0-5) /hpf Urine WBC 13 H (0-5) /hpf Ur Squamous Epith Cells 4 (0-4) /hpf Urine Bacteria Rare H (None) /hpf Urine Mucus Few H (None) /hpf Urine HCG, Qual Not Detected (Not Detectd) 02/04/23 Range/Units 23:09 WBC (3.8-10.6) k/uL RBC (3.80-5.40) m/uL Hgb (11.4-16.0) gm/dL Hct (34.0-46.0) % MCV (80.0-100.0) fL MCH (25.0-35.0) pg MCHC (31.0-37.0) g/dL RDW (11.5-15.5) % Plt Count (150-450) k/uL MPV Neutrophils % % Lymphocytes % % Monocytes % % Eosinophils % % Basophils % % Neutrophils # (1.3-7.7) k/uL Lymphocytes # (1.0-4.8) k/uL Monocytes # (0-1.0) k/uL Eosinophils # (0-0.7) k/uL Basophils # (0-0.2) k/uL Sodium 143 (137-145) mmol/L Potassium 3.8 (3.5-5.1) mmol/L Chloride 104 (98-107) mmol/L Carbon Dioxide 26 (22-30) mmol/L Anion Gap 13 mmol/L BUN 19 H (7-17) mg/dL Creatinine 1.03 (0.52-1.04) mg/dL Est GFR (CKD-EPI)AfAm 83 (>60 ml/min/1.73 sqM) Est GFR (CKD-EPI)NonAf 72 (>60 ml/min/1.73 sqM) Glucose 99 (74-99) mg/dL Calcium 9.8 (8.4-10.2) mg/dL Total Bilirubin 0.4 (0.2-1.3) mg/dL AST 23 (14-36) U/L ALT 15 (4-34) U/L Alkaline Phosphatase 63 (38-126) U/L Total Protein 8.0 (6.3-8.2) g/dL Albumin 4.7 (3.5-5.0) g/dL Amylase 69 (30-110) U/L Lipase 187 (23-300) U/L Urine Color Urine Appearance (Clear) Urine pH (5.0-8.0) Ur Specific [place] (1.001-1.035) Urine Protein (Negative) Urine Glucose (UA) (Negative) Urine Ketones (Negative) Urine Blood (Negative) Urine Nitrite (Negative) Urine Bilirubin (Negative) Urine Urobilinogen (<2.0) mg/dL Ur Leukocyte Esterase (Negative) Urine RBC (0-5) /hpf Urine WBC (0-5) /hpf Ur Squamous Epith Cells (0-4) /hpf Urine Bacteria (None) /hpf Urine Mucus (None) /hpf Urine HCG, Qual (Not Detectd) Disposition <Jerrod Whelan - Last Filed: 02/04/23 23:00> Is patient prescribed a controlled substance at d/c from ED?: No Time of Disposition: 03:05 <Jessa Ramírez - Last Filed: 02/05/23 03:40> Clinical Impression: Kidney stone Disposition: HOME SELF-CARE Condition: Good Instructions (If sedation given, give patient instructions): Kidney Stones (ED) Additional Instructions: Follow-up with PCP. Report back to ER with any new or worsening symptoms. Prescriptions: Tamsulosin [Flomax] 0.4 mg PO DAILY #10 cap Ketorolac [Toradol] 10 mg PO Q6HR PRN #12 tab PRN Reason: Pain Ondansetron Odt [Zofran Odt] 4 mg PO Q8HR PRN #20 tab PRN Reason: Nausea Referrals: Teofilo Tapia MD [Primary Care Provider] - 1-2 days Elliott Andrews MD [STAFF PHYSICIAN] - 1-2 days
[2023-02-04] MEDS ORDERED: SODIUM CHLORIDE 0.9% 1,000 ML IV STA (23:00)
[2023-02-04] MEDS ORDERED: ONDANSETRON 4 MG/2 ML VIAL IVP STA (23:00)
[2023-02-04] MEDS ORDERED: MORPHINE SULFATE 4 MG/ML SYRINGE IVP STA (23:02)
[2023-02-04 23:35] LABS: Basophils % (A) 0 %; Eosinophils # (A) 0.1 k/uL (0-0.7); Eosinophils % (A) 1 %; HCT 36.3 % (34.0-46.0); HGB 12.5 gm/dL (11.4-16.0); Lymphocytes # (A) 1.7 k/uL (1.0-4.8); Lymphocytes % (A) 18 %; MCH 26.9 pg (25.0-35.0); MCHC 34.3 g/dL (31.0-37.0); MCV 78.4 fL (80.0-100.0); Mean Platelet Volume 8.8; Monocytes # (A) 0.4 k/uL (0-1.0); Monocytes % (A) 4 %; Neutrophils # (A) 6.8 k/uL (1.3-7.7); Neutrophils % (A) 75 %; Platelet Count 207 k/uL (150-450); RBC 4.63 m/uL (3.80-5.40); RDW 14.2 % (11.5-15.5); WBC 9.1 k/uL (3.8-10.6)
[2023-02-04 23:44] LABS: ALT 15 U/L (4-34); AST 23 U/L (14-36); African American GFR (CKD) 83 (>60 ml/min/1.73 sqM); Albumin 4.7 g/dL (3.5-5.0); Alkaline Phosphatase 63 U/L (38-126); Amylase 69 U/L (30-110); Anion Gap 13 mmol/L; Blood Urea Nitrogen 19 mg/dL (7-17); Calcium 9.8 mg/dL (8.4-10.2); Carbon Dioxide 26 mmol/L (22-30); Chloride 104 mmol/L (98-107); Glucose 99 mg/dL (74-99); Lipase 187 U/L (23-300); Non-African American GFR(CKD) 72 (>60 ml/min/1.73 sqM); Potassium 3.8 mmol/L (3.5-5.1); Sodium 143 mmol/L (137-145); Total Bilirubin 0.4 mg/dL (0.2-1.3)
[2023-02-05] MEDS ORDERED: MORPHINE SULFATE 4 MG/ML SYRINGE IM STA (00:25)
[2023-02-05] MEDS ORDERED: ONDANSETRON ODT 4 MG TAB PO STA (00:26)
[2023-02-05 01:05] VITALS: BP 162/89; PULSE 91; TEMP 98.2
--- NOTE | 2023-02-05 02:00 | CT ---
EXAM: CT Abdomen and Pelvis Without Intravenous Contrast CLINICAL HISTORY: ITS.REASON CT Reason: r/o left stone TECHNIQUE: Axial computed tomography images of the abdomen and pelvis without intravenous contrast. CTDI is 7.5 mGy and DLP is 409.6 mGy-cm. This CT exam was performed using one or more of the following dose reduction techniques: automated exposure control, adjustment of the mA and/or kV according to patient size, and/or use of iterative reconstruction technique. COMPARISON: CT abdomen and pelvis 11/27/2020. FINDINGS: Lung bases: Unremarkable. No mass. No consolidation. ABDOMEN: Liver: Unremarkable. Gallbladder and bile ducts: Cholecystectomy. No ductal dilation. Pancreas: Unremarkable. No ductal dilation. Spleen: Unremarkable. No splenomegaly. Adrenals: Unremarkable. No mass. Kidneys and ureters: Obstructing 4 mm left distal ureter stone. Mild hydronephrosis of the left kidney. Nonobstructing 1 mm left lower pole renal stone. Stomach and bowel: Unremarkable. No acute diverticulitis but no bowel obstruction. PELVIS: Appendix: No findings to suggest acute appendicitis. Bladder: Decompressed urinary bladder. No stones. Reproductive: Unremarkable as visualized. ABDOMEN and PELVIS: Intraperitoneal space: Unremarkable. No free air. No significant fluid collection. Bones/joints: No acute fracture. No dislocation. Soft tissues: Unremarkable. Vasculature: Unremarkable. No abdominal aortic aneurysm. Lymph nodes: Unremarkable. No enlarged lymph nodes. IMPRESSION: Obstructing 4 mm left distal ureter stone. Mild hydronephrosis of the left kidney.
[2023-02-05] MEDS ORDERED: KETOROLAC 15 MG/ML 1 ML VIAL IM STA (02:38)
[2023-02-05 04:19] VITALS: RESP 16
== END 2023-02-05 03:58 | disposition home or self-care (01) ==
LOC: EC 21:28
DX: N13.2 Hydronephrosis with renal and ureteral calculous obstruction (principal); F41.9 Anxiety disorder, unspecified; F17.290 Nicotine dependence, other tobacco product, uncomplicated; F14.90 Cocaine use, unspecified, uncomplicated; Z79.899 Other long term (current) drug therapy; Z91.041 Radiographic dye allergy status; Z88.0 Allergy status to penicillin
CPT/HCPCS: 36415; 74176; 80053; 81001; 81025; 82150; 83690; 85025; 96360; 96372; 99285

== ENCOUNTER 2023-03-20 17:37 | Emergency (ER) | payer OTHER ==
[2023-03-20] MEDS ORDERED: LORazepam 2 MG/ML INJ IM STA (18:07)
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
[2023-03-20] MEDS ORDERED: LORazepam 2 MG/ML INJ IV STA (18:08)
[2023-03-20] MEDS ORDERED: SODIUM CHLORIDE 0.9% 500 ML 500 ML IV STA (18:08)
[2023-03-20 18:56] LABS: Basophils % (A) 0 %; Eosinophils # (A) 0.1 k/uL (0-0.7); Eosinophils % (A) 0 %; HCT 35.4 % (34.0-46.0); HGB 11.8 gm/dL (11.4-16.0); Lymphocytes % (A) 14 %; MCH 25.9 pg (25.0-35.0); MCHC 33.2 g/dL (31.0-37.0); MCV 78.2 fL (80.0-100.0); Mean Platelet Volume 8.4; Monocytes # (A) 0.6 k/uL (0-1.0); Monocytes % (A) 4 %; Neutrophils # (A) 11.4 k/uL (1.3-7.7); Neutrophils % (A) 80 %; Platelet Count 210 k/uL (150-450); RBC 4.53 m/uL (3.80-5.40); RDW 14.5 % (11.5-15.5); WBC 14.2 k/uL (3.8-10.6)
[2023-03-20] MEDS ORDERED: hydrOXYzine HCL 25 MG TAB PO PRN (19:05)
[2023-03-20 19:14] LABS: ALT 17 U/L (4-34); AST 28 U/L (14-36); African American GFR (CKD) >90 (>60 ml/min/1.73 sqM); Albumin 4.5 g/dL (3.5-5.0); Alkaline Phosphatase 58 U/L (38-126); Anion Gap 8 mmol/L; Blood Urea Nitrogen 12 mg/dL (7-17); Calcium 9.4 mg/dL (8.4-10.2); Carbon Dioxide 22 mmol/L (22-30); Chloride 110 mmol/L (98-107); Glucose 76 mg/dL (74-99); Non-African American GFR(CKD) >90 (>60 ml/min/1.73 sqM); Potassium 4.3 mmol/L (3.5-5.1); Sodium 140 mmol/L (137-145); Total Bilirubin 0.3 mg/dL (0.2-1.3); Total Protein 7.3 g/dL (6.3-8.2)
--- NOTE | 2023-03-20 19:22 | XR ---
EXAMINATION TYPE: XR chest 2V DATE OF EXAM: 03/20/2023 6:21 PM CLINICAL INDICATION:Female, 32 years old with history of dysrhythmia; [facility] COMPARISON: 11/21/2022 TECHNIQUE: XR chest 2V. Frontal and lateral views of the chest.. FINDINGS: Lines/Tubes/Devices: EKG leads overlie the chest. No indwelling lines are seen. Heart/mediastinum: Heart size is normal. Mediastinum appears normal. Pulmonary vascularity: Not increased, Lungs/Pleura: There is no evidence of pleural effusion, focal consolidation, or pneumothorax. Musculoskeletal: No acute osseous abnormality demonstrated in the limits of the exam. Slight scolios is suggested. A couple of small round presumed extrinsic densities project over the right shoulder re gion. Other findings: None. IMPRESSION: No acute findings, or significant interval change.
[2023-03-20 19:23] LABS: INR 0.9 (<1.2); Partial Thromboplastin Time 23.4 sec (22.0-30.0)
[2023-03-20 20:21] VITALS: PULSE 106; RESP 16
[2023-03-20 22:14] VITALS: BP 143/95; TEMP 97.8
== END 2023-03-20 21:35 | disposition home or self-care (01) ==
LOC: EC 17:37
DX: F41.0 Panic disorder [episodic paroxysmal anxiety] (principal); F17.290 Nicotine dependence, other tobacco product, uncomplicated; F14.90 Cocaine use, unspecified, uncomplicated; Z88.0 Allergy status to penicillin; Z91.041 Radiographic dye allergy status; Z90.49 Acquired absence of other specified parts of digestive tract; Z79.899 Other long term (current) drug therapy
CPT/HCPCS: 36415; 93005; 85379; 80053; 83735; 84443; 84484; 85025; 85610; 85730; 71046; 99285; 96374; 96361; J2060

== ENCOUNTER 2023-04-25 21:23 | Emergency (ER) | payer OTHER ==
[2023-04-25 21:49] VITALS: TEMP 98.6
[2023-04-25] MEDS: LORazepam 1 MG TAB PO STA (21:57)
--- NOTE | 2023-04-25 22:17 | XR ---
EXAMINATION TYPE: XR chest 2V DATE OF EXAM: 04/25/2023 COMPARISON: Chest x-ray March 20, 2023 HISTORY: Chest pain, anxiety. TECHNIQUE: Frontal and lateral views of the chest are obtained. FINDINGS: There is no suspicious focal air space opacity, pleural effusion, or pneumothorax seen. T he cardiac silhouette size is stable and within normal limits. The osseous structures are intact. IMPRESSION: No acute process. No significant change from prior.
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
[2023-04-25 23:33] VITALS: BP 138/84; PULSE 95; RESP 22
== END 2023-04-25 23:06 | disposition home or self-care (01) ==
LOC: EC 21:23
DX: F41.0 Panic disorder [episodic paroxysmal anxiety] (principal); F17.290 Nicotine dependence, other tobacco product, uncomplicated; F14.90 Cocaine use, unspecified, uncomplicated; Z88.0 Allergy status to penicillin; Z91.041 Radiographic dye allergy status
CPT/HCPCS: 71046; 93005; 99283

== ENCOUNTER → 2023-06-14 | Outpatient (CLI) | payer OTHER ==
--- NOTE | 2023-06-14 19:04 | CA ---
Transthoracic Echo Report Name: Gisselle Pulido Age: 32 Gender: F : 1990 Exam Date: 06/14/2023 17:34 Exam Location: [facility] Ht (in): 61 Wt (lb): 145 Ordering Physician: Teofilo Tapia MD Attending/Referring Phys: Teofilo Tapia MD Certified Personal Finance Counselor Shelby Valverde, DANY Procedure CPT: Indications: R07.2 PRECORDIAL PAIN R00.2 PALPITATIONS Cardiac Hx: Technical Quality: Good Contrast 1: Total Dose (mL): Contrast 2: Total Dose (mL): MEASUREMENTS (Male / Female) Normal Values 2D ECHO LV Diastolic Diameter PLAX 3.7 cm 4.2 - 5.9 / 3.9 - 5.3 cm LV Systolic Diameter PLAX 2.3 cm IVS Diastolic Thickness 1.1 cm 0.6 - 1.0 / 0.6 - 0.9 cm LVPW Diastolic Thickness 1.1 cm 0.6 - 1.0 / 0.6 - 0.9 cm LV Relative Wall Thickness 0.6 RV Internal Dim ED PLAX 2.7 cm LA Systolic Diameter LX 3.2 cm 3.0 - 4.0 / 2.7 - 3.8 cm LV Diastolic Volume MOD 4C 96.4 cm??? LV Systolic Volume MOD 4C 47.5 cm??? LV Ejection Fraction MOD 4C 50.7 % LV Cardiac Index MOD 4C 2355.9 cm???/min???m??? LV Diastolic Length 4C 7.7 cm LV Systolic Length 4C 6.2 cm LV Diastolic Volume MOD 2C 82.1 cm??? LV Systolic Volume MOD 2C 39.4 cm??? LV Ejection Fraction MOD 2C 51.9 % LV Cardiac Index MOD 2C 2053.5 cm???/min???m??? LV Diastolic Length 2C 6.9 cm LV Systolic Length 2C 5.6 cm LA Volume 27.2 cm??? 18 - 58 / 22 - 52 cm??? LA Volume Index 16.0 cm???/m??? 16 - 28 cm???/m??? DOPPLER AV Peak Velocity 114.6 cm/s AV Peak Gradient 5.3 mmHg MV Area PHT 4.3 cm??? Mitral E Point Velocity 95.5 cm/s Mitral A Point Velocity 73.9 cm/s Mitral E to A Ratio 1.3 MV Deceleration Time 178.1 ms FINDINGS Left Ventricle Left ventricular ejection fraction is estimated at 55-60 %. Small left ventricular cavity. Mildly increased septal wall thickness. Mildly increased posterior wall thickness. Right Ventricle Normal right ventricular size. Unable to estimate the right ventricular systolic pressure. Right Atrium Normal right atrial size. Left Atrium Normal left atrial size. No left atrial thrombus or mass present. No spontaneous echo contrast seen in the left atrium. Mitral Valve Structurally normal mitral valve. No mitral stenosis, regurgitation or prolapse. Aortic Valve Trileaflet aortic valve. No aortic valve stenosis or regurgitation. Tricuspid Valve Structurally normal tricuspid valve. No tricuspid stenosis, regurgitation or prolapse. Pulmonic Valve Structurally normal pulmonic valve. No pulmonic regurgitation. Pericardium No pericardial effusion. Aorta Normal size aortic root and proximal ascending aorta. CONCLUSIONS Normal LV systolic function. The ejection fraction is 55-60% Normal right ventricular dimension and systolic function Normal aortic root and proximal ascending aorta Overall normal intracardiac valves No evidence of pericardial effusion Previewed by: Dr. Sukumar Levi MD (Electronically Signed) Final Date: 14 June 2023 19:03
== END | disposition home or self-care (01) ==
LOC: RADECHMAIN 17:11
PROVIDERS: ATTEND Internal Medicine
DX: R00.2 Palpitations (principal); R07.2 Precordial pain
CPT/HCPCS: 93306

== ENCOUNTER → 2023-06-15 | Outpatient (CLI) | payer OTHER ==
--- NOTE | 2023-07-20 12:49 | EM ---
EVENT MONITOR This is a 30-day event monitor. INDICATION: Palpitations. FINDINGS: Underlying rhythm is sinus with an average heart rate of 90 beats per minute. Heart rate varied from 57 beats per minute to 168 beats per minute. No significant tachy or tate arrhythmias have been documented. There were episodes of sinus tachycardia and rare PVCs. MMODL / IJN: [id number] /
== END | disposition home or self-care (01) ==
LOC: RADECHMAIN 07:37
PROVIDERS: ATTEND Internal Medicine
DX: I49.3 Ventricular premature depolarization (principal); R00.0 Tachycardia, unspecified
CPT/HCPCS: 93270

== ENCOUNTER 2023-06-19 13:56 | Emergency (ER) | payer OTHER ==
--- NOTE | 2023-06-19 14:30 | ED ---
Anxiety HPI - General Chief Complaint: Chest Pain Stated Complaint: panic attack, chest pain Time Seen by Provider: 06/19/23 14:20 Source: patient, RN notes reviewed Mode of arrival: ambulatory Limitations: no limitations - History of Present Illness Initial Comments: This is a 32-year-old female who presents to the emergency department for a panic attack. States that it started 3 hours ago. Patient has a history of panic attacks and states that this feels the same. Reports feeling like she will pass out, chest pain, some shortness of breath, and nausea. She started wearing an event monitor that was ordered by her PCP 3 days ago, and believes that this made her anxious, triggering the panic attack. MD Complaint: anxiety - Related Data Home Medications: Previous Rx's Medication Instructions Recorded ALPRAZolam [Xanax] 0.5 mg PO Q8H PRN 3 Days #9 tab 03/20/23 Allergies/Adverse Reactions: Allergies Allergy/AdvReac Type Severity Reaction Status Date / Time Iodinated Contrast Media Allergy Anaphylaxis Verified 04/25/23 21:26 Penicillins Allergy Nausea & Verified 04/25/23 21:26 Vomiting Review of Systems ROS Statement: Those systems with pertinent positive or pertinent negative responses have been documented in the HPI. ROS Other: All systems not noted in ROS Statement are negative. Past Medical History Past Medical History: No Reported History History of Any Multi-Drug Resistant Organisms: None Reported Past Surgical History: Cholecystectomy, Tubal Ligation Additional Past Surgical History / Comment(s): tubal ligation Past Anesthesia/Blood Transfusion Reactions: No Reported Reaction Past Psychological History: Anxiety, Panic Disorder Smoking Status: Vaper Past Alcohol Use History: Occasional Past Drug Use History: Cocaine - Past Family History Mother Family Medical History: No Reported History General Exam Limitations: no limitations General appearance: alert, in no apparent distress Head exam: Present: atraumatic, normocephalic, normal inspection Respiratory exam: Present: normal lung sounds bilaterally. Absent: respiratory distress, wheezes, rales, rhonchi, stridor Cardiovascular Exam: Present: normal rhythm, tachycardia, normal heart sounds. Absent: systolic murmur, diastolic murmur, rubs, gallop, clicks Neurological exam: Present: alert, oriented X3, CN II-XII intact Psychiatric exam: Present: normal affect, normal mood Skin exam: Present: warm, dry, intact, normal color. Absent: rash Course Vital Signs 06/19/23 06/19/23 06/19/23 14:08 14:38 14:39 Temperature 98.3 F Pulse Rate 110 H Pulse Rate [ 110 H Pulse Oximetery ] Respiratory 20 18 Rate Blood Pressure 140/96 O2 Sat by Pulse 100 Oximetry 06/19/23 15:50 Temperature 98.2 F Pulse Rate 96 Pulse Rate [ Pulse Oximetery ] Respiratory 16 Rate Blood Pressure 142/90 O2 Sat by Pulse 100 Oximetry Medical Decision Making - Medical Decision Making This is a 32 year old female who presents to the emergency department for a panic attack. Was pt. sent in by a medical professional or institution? @ -No Did you speak to anyone other than the patient for history? @ -No Did you review nursing and triage notes? @ -Yes, and I agree, it is accurate with regards to the patient's symptoms. Were old charts reviewed? @ -No Differential Diagnosis? @ -Differential Panic Attack: Anxiety, hyperthyroidism, PE, PVCs, this is not meant to be an all-inclusive list. EKG interpreted by me (3pts min.)? @ -EKG interpreted by me demonstrating the following: Sinus tachycardia. Ventricular rate 104 bpm, MO interval 140 ms, QRS duration 83 ms, QTc 405 ms. X-rays interpreted by me (1pt min.)? @ -Chest x-ray obtained, my interpretation identifies no localized consolidations or infiltrates. CT interpreted by me (1pt min.)? @ -Not obtained U/S interpreted by me (1pt. min.)? @ -Not obtained What testing was considered but not performed? (CT, X-rays, U/S, labs)? Why? @ -I offered additional testing with blood work, however patient declined given that this felt like a typical panic attack. What meds were considered but not given? Why? @ -None Did you discuss the management of the patient with other professionals? @ -No Did you reconcile home meds? @ -No Was smoking cessation discussed for >3mins.? @ -I discussed smoking cessation for greater than 3 minutes. The risk of smoking were discussed with the patient including but not limited to risks of cancer, stroke, coronary artery disease and COPD. Also discussed with patient were multiple methods of quitting smoking. Lastly we discussed the financial cost of smoking. Was critical care preformed (if so, how long)? @ -No Were there social determinants of health that impacted care today? How? (Homelessness, low income, unemployed, alcoholism, drug addiction, transportation, low edu. Level, literacy, decrease access to med. care, halfway, rehab)? @ -No Was there de-escalation of care discussed even if they declined? (Discuss DNR or withdrawal of care, Hospice)? @ -No What co-morbidities impacted this encounter? (DM, HTN, Smoking, COPD, CAD, Cancer, CVA, Hep., AIDS, mental health diagnosis, sleep apnea, morbid obesity)? @ -Anxiety, substance abuse, smoking Was patient admitted / discharged? @ -Discharged. Chest x-ray obtained revealing no acute process. I offered additional workup such as blood work, however patient declined, as she states that this feels like a typical panic attack and she did not feel like any additional workup was warranted. Patient treated with IV fluids and Ativan as well as Toradol for her headache. She had improvement in symptoms afterwards. Patient discharged home in stable condition and advised close follow-up with her primary care provider. Undiagnosed new problem with uncertain prognosis? @ -None Drug Therapy requiring intensive monitoring for toxicity (Heparin, Nitro, Insulin, Cardizem)? @ -None Were any procedures done? @ -None Diagnosis/symptom? @ -Panic attack Acute, or Chronic, or Acute on Chronic? @ -Acute Uncomplicated (without systemic symptoms) or Complicated (systemic symptoms)? @ -Uncomplicated Side effects of treatment? @ -None Exacerbation, Progression, or Severe Exacerbation] @ -Not applicable Poses a threat to life or bodily function? @ -No Return precautions reviewed in depth, the patient is instructed to return to the emergency department with any new, worsening, or concerning symptoms. Patient verbalized understanding. This case was discussed in detail with the attending ED physician, Dr. Vines. Presentation, findings, and treatment plan discussed in detail as well. - Radiology Data Radiology results: report reviewed, image reviewed Disposition Clinical Impression: Panic attack, Nicotine dependence Disposition: HOME SELF-CARE Instructions (If sedation given, give patient instructions): Panic Attack (ED) Additional Instructions: Return to the emergency department with any new, worsening, or concerning symptoms. Follow up with your primary care provider in 1-2 days. Is patient prescribed a controlled substance at d/c from ED?: No Referrals: Teofilo Tapia MD [Primary Care Provider] - 1-2 days Time of Disposition: 16:11
[2023-06-19] MEDS: SODIUM CHLORIDE 0.9% 1,000 ML IV STA (14:35)
[2023-06-19] MEDS: KETOROLAC 15 MG/ML 1 ML VIAL IVP STA (14:40)
[2023-06-19] MEDS: LORazepam 2 MG/ML INJ IV STA ×2 (14:41→16:26)
--- NOTE | 2023-06-19 15:51 | XR ---
EXAMINATION TYPE: XR chest 2V DATE OF EXAM: 06/19/2023 COMPARISON: 04/25/2023 INDICATION: Sharp chest pain TECHNIQUE: Frontal and lateral views of the chest are obtained. FINDINGS: The heart size is normal. A cardiac device overlies the left chest. The pulmonary vasculature is normal. The lungs are clear. IMPRESSION: 1. No acute pulmonary process.
[2023-06-19 16:23] VITALS: RESP 16; TEMP 98.2
[2023-06-19] MEDS: LORazepam 1 MG TAB PO STA (16:28)
[2023-06-19 17:39] VITALS: BP 138/87; PULSE 87
== END 2023-06-19 17:08 | disposition home or self-care (01) ==
LOC: EC 13:56
DX: F41.0 Panic disorder [episodic paroxysmal anxiety] (principal); F17.200 Nicotine dependence, unspecified, uncomplicated; Z88.0 Allergy status to penicillin; Z88.5 Allergy status to narcotic agent; Z90.49 Acquired absence of other specified parts of digestive tract
CPT/HCPCS: 93005; 71046; 99285; 96374; 96375; 96361 ×3; J2060; J1885

== ENCOUNTER 2023-07-11 14:36 | Emergency (ER) | payer OTHER ==
[2023-07-11 15:12] VITALS: BP 145/92; PULSE 122; RESP 18; TEMP 98.9
[2023-07-11] MEDS: LORazepam 1 MG TAB PO STA (15:16)
--- NOTE | 2023-07-11 15:18 | ED ---
Anxiety HPI - General Chief Complaint: Anxiety Stated Complaint: Panic Attack Time Seen by Provider: 07/11/23 15:01 Source: patient, RN notes reviewed, old records reviewed Mode of arrival: ambulatory Limitations: no limitations - History of Present Illness Initial Comments: This is a 32-year-old female to the ER today. She presents today for evaluation regards to his anterior chest pain racing heart with elevated heart rate here in the ER history of similar. 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 Patient has no recent travel history or sick contacts no drugs or alcohol. Patient has no recent travel history or sick contacts no thoughts of harming herself or others - Related Data Home Medications: Previous Rx's Medication Instructions Recorded ALPRAZolam [Xanax] 0.5 mg PO Q8H PRN 3 Days #9 tab 03/20/23 Allergies/Adverse Reactions: Allergies Allergy/AdvReac Type Severity Reaction Status Date / Time Iodinated Contrast Media Allergy Anaphylaxis Verified 04/25/23 21:26 Penicillins Allergy Nausea & Verified 04/25/23 21:26 Vomiting Review of Systems ROS Statement: Those systems with pertinent positive or pertinent negative responses have been documented in the HPI. ROS Other: All systems not noted in ROS Statement are negative. Past Medical History Past Medical History: Hypertension History of Any Multi-Drug Resistant Organisms: None Reported Past Surgical History: Cholecystectomy, Tubal Ligation Additional Past Surgical History / Comment(s): tubal ligation Past Anesthesia/Blood Transfusion Reactions: No Reported Reaction Past Psychological History: Anxiety, Panic Disorder Smoking Status: Vaper Past Alcohol Use History: Occasional Past Drug Use History: Cocaine - Past Family History Mother Family Medical History: No Reported History General Exam Limitations: no limitations General appearance: alert, in no apparent distress, anxious Head exam: Present: atraumatic, normocephalic, normal inspection Eye exam: Present: normal appearance, PERRL, EOMI. Absent: scleral icterus, conjunctival injection, periorbital swelling ENT exam: Present: normal exam, mucous membranes moist Neck exam: Present: normal inspection. Absent: tenderness, meningismus, lymphadenopathy Respiratory exam: Present: normal lung sounds bilaterally. Absent: respiratory distress, wheezes, rales, rhonchi, stridor Cardiovascular Exam: Present: normal rhythm, tachycardia, normal heart sounds. Absent: systolic murmur, diastolic murmur, rubs, gallop, clicks GI/Abdominal exam: Present: soft, normal bowel sounds. Absent: distended, tenderness, guarding, rebound, rigid Extremities exam: Present: normal inspection, full ROM, normal capillary refill. Absent: tenderness, pedal edema, joint swelling, calf tenderness Back exam: Present: normal inspection Neurological exam: Present: alert, oriented X3, CN II-XII intact Psychiatric exam: Present: normal affect, normal mood Skin exam: Present: warm, dry, intact, normal color. Absent: rash Course Vital Signs 07/11/23 14:46 Temperature 98.9 F Pulse Rate 122 H Respiratory 18 Rate Blood Pressure 145/92 O2 Sat by Pulse 96 Oximetry - Reevaluation(s) Reevaluation #1: Medical records reviewed Reevaluation #2: Patient symptoms are improving Reevaluation #3: Patient informed of results questions answered Reevaluation #4: 07/19/23 08:09 Was pt. sent in by a medical professional or institution (, PA, COMPOUND MACHINE OPERATOR, urgent care, hospital, or long term...) When possible be specific @ -no Did you speak to anyone other than the patient for history (EMS, parent, family, police, friend...)? What history was obtained from this source @ -no Did you review nursing and triage notes (agree or disagree)? Why? @ -agree Are old charts reviewed (outside hosp., previous admission, EMS record, old EKG, old radiological studies, urgent care reports/EKG's, long term records)? Report findings @ -yes Differential Diagnosis (chest pain, altered mental status, abdominal pain women, abdominal pain men, vaginal bleeding, weakness, fever, dyspnea, syncope, headache, dizziness, GI bleed, back pain, seizure, CVA, palpatations, mental health, musculoskeletal)? @ -prior EKG interpreted by me (3pts min.). @ -yes X-rays interpreted by me (1pt min.). @ -no CT interpreted by me (1pt min.). @ -no U/S interpreted by me (1pt. min.). @ -no What testing was considered but not performed or refused? (CT, X-rays, U/S, labs)? Why? @ -none What meds were considered but not given or refused? Why? @ -none Did you discuss the management of the patient with other professionals (professionals i.e. , PA, COMPOUND MACHINE OPERATOR, lab, RT, psych nurse, school social worker, hide stretcher hand, teacher, youth corrections officer, medical case worker)? Give summary @ -no Was smoking cessation discussed for >3mins.? @ -no Were there social determinants of health that impacted care today? How? (Homelessness, low income, unemployed, alcoholism, drug addiction, transportation, low edu. Level, literacy, decrease access to med. care, retirement, rehab)? @ -none Was there de-escalation of care discussed even if they declined (Discuss DNR or withdrawal of care, Hospice)? DNR status @ -no What co-morbidities impacted this encounter? (DM, HTN, Smoking, COPD, CAD, Cancer, CVA, ARF, Chemo, Hep., AIDS, mental health diagnosis, sleep apnea, morbid obesity)? @ -none Was patient admitted / discharged? Hospital course, mention meds given and route, prescriptions, significant lab abnormalities, going to OR and other pertinent info. @ - 32 female to ER for evaluation of chest pain palpitation and anxiety. Patient admits to this being a panic attack and this has been a normal pattern for her. Patient would like something for anxiety as she is suffering from chest pain and anxiety and after that she is feeling improved here in the ER. Patient can be discharged home Discharge panic disorder Was critical care preformed (if so, how long)? @ -no Undiagnosed new problem with uncertain prognosis? @ -no Drug Therapy requiring intensive monitoring for toxicity (Heparin, Nitro, Insulin, Cardizem)? @ -no Were any procedures done? @ -no Diagnosis/symptom? @ -Pain, anxiety attack Acute, or Chronic, or Acute on Chronic? @ -Acute Uncomplicated (without systemic symptoms) or Complicated (systemic symptoms)? @ -Complicated Side effects of treatment? @ -no Exacerbation, Progression, or Severe Exacerbation? @ -exacerbation Poses a threat to life or bodily function? How? (Chest pain, [place], [place], pneumonia, PE, COPD, DKA, ARF, appy, cholecystitis, CVA, Diverticulitis, Homicidal, Suicidal, threat to staff... and all critical care pts) @ -yes with chest pain Reevaluation #5: Differential Palpitations Ventricular arrhythmias, atrial arrhythmias, myocardial infarction, anemia, thyrotoxicosis, electrolyte imbalance, hypokalemia, pulmonary embolism, pulmonary disease, drugs, alcohol, anxiety, stress.... This is not meant to be an all-inclusive list. Medical Decision Making - Medical Decision Making 32 female to ER for evaluation of chest pain palpitation and anxiety. Patient admits to this being a panic attack and this has been a normal pattern for her. Patient would like something for anxiety as she is suffering from chest pain and anxiety and after that she is feeling improved here in the ER. Patient can be discharged home - EKG Data -: EKG Interpreted by Me (She is sinus tachycardia 115 IA 170 QRS 80 QTc 411) Disposition Clinical Impression: Acute anxiety, Panic attack Disposition: HOME SELF-CARE Condition: Good Instructions (If sedation given, give patient instructions): Generalized Anxiety Disorder (ED) Is patient prescribed a controlled substance at d/c from ED?: No Referrals: Teofilo Tapia MD [Primary Care Provider] - 1-2 days Time of Disposition: 15:05
[2023-07-11] MEDS: ONDANSETRON 4 MG TAB PO STA (15:20)
== END 2023-07-11 15:27 | disposition home or self-care (01) ==
LOC: EC 14:36
DX: F41.0 Panic disorder [episodic paroxysmal anxiety] (principal); F17.290 Nicotine dependence, other tobacco product, uncomplicated; Z88.0 Allergy status to penicillin; Z91.041 Radiographic dye allergy status; Z90.49 Acquired absence of other specified parts of digestive tract
CPT/HCPCS: 93005; 99284

== ENCOUNTER 2023-10-19 00:29 | Emergency (ER) | payer OTHER ==
[2023-10-19 00:34] VITALS: RESP 18
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
[2023-10-19] MEDS: HYDROmorphone 0.5 MG/0.5 ML SYRINGE IM STA (00:57)
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
[2023-10-19 02:35] VITALS: BP 131/86; PULSE 78; TEMP 98.1
== END 2023-10-19 02:33 | disposition home or self-care (01) ==
LOC: EC 00:29
CPT/HCPCS: 96372; 99283

== ENCOUNTER 2023-12-19 11:47 | Emergency (ER) | payer OTHER ==
[2023-12-19 12:05] VITALS: TEMP 98.8
[2023-12-19] MEDS: LORazepam 2 MG/ML INJ IM STA (12:31)
[2023-12-19 13:30] VITALS: RESP 18
[2023-12-19] MEDS: diphenhydrAMINE 50 MG/ML 1 ML VIAL IVP STA (13:54)
[2023-12-19] MEDS: ONDANSETRON 4 MG/2 ML VIAL IVP STA (13:54)
[2023-12-19] MEDS: SODIUM CHLORIDE 0.9% 1,000 ML IV ONE (13:55)
[2023-12-19] MEDS: LORazepam 2 MG/ML INJ IV STA (13:57)
--- NOTE | 2023-12-19 14:13 | ED ---
Anxiety HPI - General Chief Complaint: Anxiety Stated Complaint: Anxiety Time Seen by Provider: 12/19/23 12:11 Source: patient, RN notes reviewed Mode of arrival: ambulatory Limitations: no limitations - History of Present Illness Initial Comments: 33-year-old female presents emergency department with chief complaint of anxiety. Patient states she has frequent anxiety, panic attacks. Patient states that she does not have any abortive medications. States she did a large amount of stress which is bothering her. Patient denies being suicidal homicid al. Patient states she just feels her heart is racing she is tingly all over. Patient states she is nauseous from this. - Related Data Home Medications: Previous Rx's Medication Instructions Recorded ALPRAZolam [Xanax] 0.5 mg PO Q8H PRN 3 Days #9 tab 03/20/23 Allergies/Adverse Reactions: Allergies Allergy/AdvReac Type Severity Reaction Status Date / Time Iodinated Contrast Media Allergy Anaphylaxis Verified 12/19/23 12:05 Penicillins Allergy Nausea & Verified 12/19/23 12:05 Vomiting Review of Systems ROS Statement: Those systems with pertinent positive or pertinent negative responses have been documented in the HPI. ROS Other: All systems not noted in ROS Statement are negative. Past Medical History Past Medical History: Hypertension History of Any Multi-Drug Resistant Organisms: None Reported Past Surgical History: Cholecystectomy, Tubal Ligation Additional Past Surgical History / Comment(s): tubal ligation Past Anesthesia/Blood Transfusion Reactions: No Reported Reaction Past Psychological History: Anxiety, Panic Disorder Smoking Status: Vaper Past Alcohol Use History: Occasional Past Drug Use History: Cocaine - Past Family History Mother Family Medical History: No Reported History General Exam Limitations: no limitations General appearance: alert, in no apparent distress, anxious Head exam: Present: atraumatic, normocephalic, normal inspection Eye exam: Present: normal appearance, PERRL, EOMI. Absent: scleral icterus, conjunctival injection, periorbital swelling ENT exam: Present: normal exam, normal oropharynx, mucous membranes moist Neck exam: Present: normal inspection, full ROM. Absent: tenderness, meningismus, lymphadenopathy Respiratory exam: Present: normal lung sounds bilaterally. Absent: respiratory distress, wheezes, rales, rhonchi, stridor Cardiovascular Exam: Present: normal rhythm, tachycardia, normal heart sounds. Absent: systolic murmur, diastolic murmur, rubs, gallop, clicks GI/Abdominal exam: Present: soft, normal bowel sounds. Absent: distended, tenderness, guarding, rebound, rigid Neurological exam: Present: alert, oriented X3 Psychiatric exam: Present: anxious Skin exam: Present: warm, dry, intact, normal color. Absent: rash Course Vital Signs 12/19/23 12/19/23 12/19/23 12:03 13:29 14:51 Temperature 98.8 F Pulse Rate 120 H 102 H 99 Respiratory 16 18 18 Rate Blood Pressure 144/79 137/88 O2 Sat by Pulse 97 99 99 Oximetry 12/19/23 15:51 Temperature Pulse Rate 91 Respiratory 18 Rate Blood Pressure 127/92 O2 Sat by Pulse 98 Oximetry Medical Decision Making - Medical Decision Making Was pt. sent in by a medical professional or institution (JACQUELINE Cage, [employer]PERATOR, urgent care, hospital, or [place] health care facility...) When possible be specific @ -No Did you speak to anyone other than the patient for history (EMS, parent, family, police, friend...)? What history was obtained from this source @ -No Did you review nursing and triage notes (agree or disagree)? Why? @ -I reviewed and agree with nursing and triage notes Were old charts reviewed (outside hosp., previous admission, EMS record, old EKG, old radiological studies, urgent care reports/EKG's, [place] health [facility] facility records)? Report findings @ -No old charts were reviewed Differential Diagnosis (chest pain, altered mental status, abdominal pain women, abdominal pain men, vaginal bleeding, weakness, fever, dyspnea, syncope, headache, dizziness, GI bleed, back pain, seizure, CVA, palpatations, mental health, musculoskeletal)? @ -Anxiety, depression, panic attack EKG interpreted by me (3pts min.). @ -None X-rays interpreted by me (1pt min.). @ -None done CT interpreted by me (1pt min.). @ -None done U/S interpreted by me (1pt. min.). @ -None done What testing was considered but not performed or refused? (CT, X-rays, U/S, labs)? Why? @ -None What meds were considered but not given or refused? Why? @ -None Did you discuss the management of the patient with other professionals (professionals i.e. JACQUELINE Cage, [employer] OPERATOR, lab, RT, psych nurse, home health care social worker, lamp shade assembler, teacher, consumer loan officer, patient case coordinator)? Give summary @ -No Was smoking cessation discussed for >3mins.? @ -No Was critical care preformed (if so, how long)? @ -No Were there social determinants of health that impacted care today? How? (Homelessness, low income, unemployed, alcoholism, drug addiction, tra nsportation, low edu. Level, literacy, decrease access to med. care, correction, rehab)? @ -No Was there de-escalation of care discussed even if they declined (Discuss DNR or withdrawal of care, Hospice)? DNR status @ -No What co-morbidities impacted this encounter? (DM, HTN, Smoking, COPD, CAD, Cancer, CVA, ARF, Chemo, Hep., AIDS, mental health diagnosis, sleep apnea, morbid obesity)? @ -None Was patient admitted / discharged? Hospital course, mention meds given and route, prescriptions, significant lab abnormalities, going to OR and other pertinent info. @ -Discharged patient presented for panic attack patient has a history anxieties presented emergency room for this in the past patient is a suicidal patient does feel improved at this time will be discharged in stable condition. Undiagnosed new problem with uncertain prognosis? @ -No Drug Therapy requiring intensive monitoring for toxicity (Heparin, Nitro, Insulin, Cardizem)? @ -No Were any procedures done? @ -No Diagnosis/symptom? @ -Panic attack, anxiety Acute, or Chronic, or Acute on Chronic? @ -Acute Uncomplicated (without systemic symptoms) or Complicated (systemic symptoms)? @ -Uncomplicated Side effects of treatment? @ -No Exacerbation, Progression, or Severe Exacerbation? @ -No Poses a threat to life or bodily function? How? (Chest pain, [place], [place], pneumonia, PE, COPD, DKA, ARF, appy, cholecystitis, CVA, Diverticulitis, Homicidal, Suicidal, threat to staff... and all critical care pts) @ -No - Lab Data Result diagrams: 12/19/23 14:49 12/19/23 14:49 Lab Results 12/19/23 12/19/23 Range/Units 14:49 14:49 WBC 10.0 (3.8-10.6) k/uL RBC 4.37 (3.80-5.40) m/uL Hgb 10.4 L (11.4-16.0) gm/dL Hct 32.3 L (34.0-46.0) % MCV 73.8 L (80.0-100.0) fL MCH 23.7 L (25.0-35.0) pg MCHC 32.1 (31.0-37.0) g/dL RDW 15.5 (11.5-15.5) % Plt Count 192 (150-450) k/uL MPV 8.4 Neutrophils % 78 % Lymphocytes % 16 % Monocytes % 4 % Eosinophils % 0 % Basophils % 0 % Neutrophils # 7.7 (1.3-7.7) k/uL Lymphocytes # 1.6 (1.0-4.8) k/uL Monocytes # 0.4 (0-1.0) k/uL Eosinophils # 0.0 (0-0.7) k/uL Basophils # 0.0 (0-0.2) k/uL Hypochromasia Slight Microcytosis Slight Sodium 142 (137-145) mmol/L Potassium 4.3 (3.5-5.1) mmol/L Chloride 112 H (98-107) mmol/L Carbon Dioxide 24 (22-30) mmol/L Anion Gap 6 mmol/L BUN 8 (7-17) mg/dL Creatinine 0.67 (0.52-1.04) mg/dL Est GFR (CKD-EPI)AfAm >90 (>60 ml/min/1.73 sqM) Est GFR (CKD-EPI)NonAf >90 (>60 ml/min/1.73 sqM) Glucose 75 (74-99) mg/dL Calcium 8.4 (8.4-10.2) mg/dL Magnesium 2.0 (1.6-2.3) mg/dL Total Bilirubin 0.4 (0.2-1.3) mg/dL AST 28 (14-36) U/L ALT 17 (4-34) U/L Alkaline Phosphatase 39 (38-126) U/L Total Protein 6.8 (6.3-8.2) g/dL Albumin 4.1 (3.5-5.0) g/dL Disposition Clinical Impression: Panic attack, Acute anxiety Disposition: HOME SELF-CARE Condition: Stable Instructions (If sedation given, give patient instructions): Generalized Anxiety Disorder (ED) Additional Instructions: Please return to the Emergency Department if symptoms worsen or any other concerns. Is patient prescribed a controlled substance at d/c from ED?: No Referrals: Teofilo Tapia MD [Primary Care Provider] - 1-2 days Time of Disposition: 15:51
[2023-12-19 15:03] LABS: Basophils % (A) 0 %; Eosinophils % (A) 0 %; HCT 32.3 % (34.0-46.0); HGB 10.4 gm/dL (11.4-16.0); Hypochromasia Slight; Lymphocytes # (A) 1.6 k/uL (1.0-4.8); Lymphocytes % (A) 16 %; MCH 23.7 pg (25.0-35.0); MCHC 32.1 g/dL (31.0-37.0); MCV 73.8 fL (80.0-100.0); Mean Platelet Volume 8.4; Microcytosis Slight; Monocytes # (A) 0.4 k/uL (0-1.0); Monocytes % (A) 4 %; Neutrophils # (A) 7.7 k/uL (1.3-7.7); Neutrophils % (A) 78 %; Platelet Count 192 k/uL (150-450); RBC 4.37 m/uL (3.80-5.40); RDW 15.5 % (11.5-15.5)
[2023-12-19 15:17] LABS: ALT 17 U/L (4-34); AST 28 U/L (14-36); African American GFR (CKD) >90 (>60 ml/min/1.73 sqM); Albumin 4.1 g/dL (3.5-5.0); Alkaline Phosphatase 39 U/L (38-126); Anion Gap 6 mmol/L; Blood Urea Nitrogen 8 mg/dL (7-17); Calcium 8.4 mg/dL (8.4-10.2); Carbon Dioxide 24 mmol/L (22-30); Chloride 112 mmol/L (98-107); Glucose 75 mg/dL (74-99); Non-African American GFR(CKD) >90 (>60 ml/min/1.73 sqM); Potassium 4.3 mmol/L (3.5-5.1); Sodium 142 mmol/L (137-145); Total Bilirubin 0.4 mg/dL (0.2-1.3); Total Protein 6.8 g/dL (6.3-8.2)
[2023-12-19 15:52] VITALS: BP 127/92; PULSE 91
[2023-12-19] MEDS: LORazepam 1 MG TAB PO STA ×2 (15:59→16:00)
== END 2023-12-19 16:05 | disposition home or self-care (01) ==
LOC: EC 11:47
DX: F41.0 Panic disorder [episodic paroxysmal anxiety] (principal); F17.290 Nicotine dependence, other tobacco product, uncomplicated; F14.90 Cocaine use, unspecified, uncomplicated; Z88.0 Allergy status to penicillin; Z91.041 Radiographic dye allergy status
CPT/HCPCS: 99284; 96374; 96375 ×2; 96372; 96361; 36415; 80053; 83735; 85025; J2060; J1200; J2405